=== PATIENT | female | born 1935 | race Caucasian/White ===

== ENCOUNTER → 2017-05-10 10:00 | Outpatient (CLI) | payer MEDICARE, OTHER | END | disposition home or self-care (01) | LOC: D.CT 10:00 | DX: Z85.3 Personal history of malignant neoplasm of breast (principal) ==

== ENCOUNTER → 2017-08-01 16:12 | Outpatient (CLI) | payer MEDICARE, OTHER ==
[2017-08-01 17:12] LABS: INR 1.01 (0.85-1.17); PROTIME 13.1 SECONDS (11.6-15.0)
[2017-08-01 17:15] LABS: % SATURATION 15 % (15-55); ALBUMIN 3.3 g/dL (3.4-5.0); BILIRUBIN - DIRECT 0.19 mg/dL (0.00-0.30); BILIRUBIN - INDIRECT 0.73 mg/dL (0.00-1.00); BILIRUBIN - TOTAL 0.92 mg/dL (0.2-1.3); IRON 61 ug/dl (35-150); PROTEIN - SERUM 6.7 g/dL (6.4-8.2); TOTAL IRON BIND CAPACITY 390 ug/dl (260-445); UNSAT IRON BIND CAPACITY 329 ug/dl (150-375)
[2017-08-03 07:21] LABS: ALPHA FETOPROTEIN -(TUMOR MRK) 2.1 ng/mL (0.0-8.3)
[2017-08-03 15:11] LABS: HEPATITIS C ANTIBODY 0.6 (0.0-0.9)
[2017-08-04 11:08] LABS: MITOCHONDRIAL ANTIBODY 4.8 Units (0.0-20.0); SMOOTH MUSCLE ABS (ACTIN) 11 Units (0-19)
[2017-08-05 13:13] LABS: ANA REFLEX - DIRECT Negative (Negative)
== END | disposition home or self-care (01) ==
LOC: D.LABREF 16:12
PROVIDERS: Internal Medicine Gastroenterology
DX: I85.00 Esophageal varices without bleeding (principal); K74.69 Other cirrhosis of liver; R93.8 Abnormal findings on diagnostic imaging of other specified body structures

== ENCOUNTER → 2018-03-24 09:11 | Outpatient (CLI) | payer MEDICARE, OTHER ==
[2018-03-24 09:43] LABS: BASOPHILS 0.4 % (0-2); EOSINOPHILS 2.1 % (0-7); HEMATOCRIT 36.5 % (36.0-48.0); HEMOGLOBIN 12.2 g/dL (12-16); IMMATURE GRANULOCYTES 0.2 % (0-5); MCH 30.8 pg (26.0-34.0); MCHC 33.4 g/dL (31.0-37.0); MCV 92.2 fL (80.0-100.0); MEAN PLATELET VOLUME 10.7 fL (7.4-10.4); MONOCYTES 7.6 % (2-11); NEUTROPHILS 70.7 % (40-80); PLATELET COUNT 81 10x3/uL (130-400); RBC 3.96 10x6/uL (4.00-5.40); RDW 15.6 % (11.5-14.5); WBC 5.3 10x3/uL (4.8-10.8)
[2018-03-24 10:04] LABS: ALBUMIN 3.4 g/dL (3.4-5.0); BILIRUBIN - DIRECT 0.41 mg/dL (0.00-0.30); BILIRUBIN - INDIRECT 0.99 mg/dL (0.00-1.00); BILIRUBIN - TOTAL 1.4 mg/dL (0.2-1.3)
[2018-03-24 10:11] LABS: PLATELET ESTIMATE DECREASED
== END | disposition home or self-care (01) ==
LOC: D.LAB 09:11 → D.US 10:00
PROVIDERS: Internal Medicine Gastroenterology
DX: K74.60 Unspecified cirrhosis of liver (principal)

== ENCOUNTER → 2019-09-15 20:48 | Outpatient (CLI) | payer MEDICARE, OTHER ==
[2019-09-15 21:37] LABS: ALBUMIN 3.3 g/dL (3.4-5.0); BILIRUBIN - DIRECT 0.25 mg/dL (0.00-0.30); BILIRUBIN - INDIRECT 0.96 mg/dL (0.00-1.00); BILIRUBIN - TOTAL 1.21 mg/dL (0.2-1.3); PROTEIN - SERUM 6.5 g/dL (6.4-8.2)
== END | disposition home or self-care (01) ==
LOC: D.LABREF 20:48
PROVIDERS: ATTEND Internal Medicine Gastroenterology
DX: K74.69 Other cirrhosis of liver (principal); I85.00 Esophageal varices without bleeding

== ENCOUNTER → 2019-09-18 09:40 | Outpatient (CLI) | payer MEDICARE, OTHER | END | disposition home or self-care (01) | LOC: D.US 09:40 | PROVIDERS: ATTEND Internal Medicine Gastroenterology | DX: K74.69 Other cirrhosis of liver (principal); I85.00 Esophageal varices without bleeding ==

== ENCOUNTER 2021-01-01 06:31 | Emergency (ER) | payer MEDICARE, OTHER ==
[~2021-01-01] VITALS: Ht 162.6 cm; Wt 90.0 kg
[2021-01-01 06:33] VITALS: BP 198/72; Ht 162.6 cm; Wt 90.0 kg
[2021-01-01] MEDS ORDERED: LEVOXYL50 MCG PO (06:40)
[2021-01-01] MEDS ORDERED: JARDIANCE10 MG PO (06:41)
[2021-01-01] MEDS ORDERED: GLIMEPIRIDE4 MG PO (06:41)
[2021-01-01] MEDS ORDERED: LASIX40 MG PO (06:41)
[2021-01-01] MEDS ORDERED: K-TAB10 MEQ PO (06:41)
[2021-01-01] MEDS ORDERED: ZYLOPRIM300 MG PO (06:43)
[2021-01-01] MEDS ORDERED: GLUCOPHAGE500 MG PO (06:43)
[2021-01-01] MEDS ORDERED: COZAAR50 MG PO (06:43)
[2021-01-01] MEDS ORDERED: GABAPENTIN100 MG PO (06:43)
[2021-01-01] MEDS ORDERED: ROPINIROLE HCL1 MG PO (06:44)
[2021-01-01] MEDS ORDERED: DONEPEZIL HCL10 MG PO (06:45)
[2021-01-01] MEDS ORDERED: ULTRAM50 MG PO (06:46)
[2021-01-01] MEDS ORDERED: VITAMIN E200 UNI1 PO (06:46)
[2021-01-01] MEDS ORDERED: METHOCARBAMOL500 MG PO ×2 (06:46→09:48)
[2021-01-01 07:37] LABS: CALC OSMOLALITY 283 mosm/kg (275-300); CARBON DIOXIDE 24.6 mmol/L (21.0-32.0); CHLORIDE - SERUM 106 mmol/L (98-107); CREATININE - SERUM 1.3 mg/dL (0.6-1.3); GLUCOSE 89 mg/dL (74-106); POTASSIUM - SERUM 3.2 mmol/L (3.5-5.1); SODIUM 141 mmol/L (136-145); UREA NITROGEN 25 mg/dL (7-18); eGFR NON AFRICAN AMERICAN 41 mL/min (90-120)
[2021-01-01 07:44] LABS: BASOPHILS 0.3 % (0-2); EOSINOPHILS 2.2 % (0-7); HEMATOCRIT 36.1 % (36.0-48.0); HEMOGLOBIN 11.7 g/dL (12-16); IMMATURE GRANULOCYTES 0.3 % (0-5); LYMPHOCYTES 10.8 % (15-50); MCH 31.2 pg (26.0-34.0); MCHC 32.4 g/dL (31.0-37.0); MCV 96.3 fL (80.0-100.0); MEAN PLATELET VOLUME 9.8 fL (7.4-10.4); MONOCYTES 8.6 % (2-11); NEUTROPHIL ABS# 5.06 10x3/uL (1.56-6.13); NEUTROPHILS 77.8 % (40-80); PLATELET COUNT 67 10x3/uL (130-400); RBC 3.75 10x6/uL (4.00-5.40); RDW 15.8 % (11.5-14.5); WBC 6.5 10x3/uL (4.8-10.8)
[2021-01-01 07:47] LABS: ALBUMIN 3.3 g/dL (3.4-5.0); ALKALINE PHOSPHATASE 98 U/L (30-120); ALT (SGPT) 32 U/L (10-68); AMYLASE - SERUM 112 U/L (25-115); BILIRUBIN - TOTAL 1.01 mg/dL (0.2-1.3); LIPASE 427 U/L (73-393); PROTEIN - SERUM 6.1 g/dL (6.4-8.2)
[2021-01-01 07:48] LABS: TROPONIN-I < 0.017 ng/mL (0.000-0.060)
[2021-01-01 08:03] LABS: BILIRUBIN NEGATIVE (NEGATIVE); KETONE NEGATIVE (NEGATIVE); NITRITE NEGATIVE (NEGATIVE); UROBILINOGEN NORMAL mg/dL (< 2)
[2021-01-01 08:20] LABS: PLATELET ESTIMATE DECREASED
[2021-01-01] MEDS ORDERED: NAPROSYN500 MG PO (09:48)
== END 2021-01-01 10:30 | disposition home or self-care (01) ==
LOC: D.ER 06:31
PROVIDERS: Family Medicine
DX: M48.56XA Collapsed vertebra, not elsewhere classified, lumbar region, initial encounter for fracture (principal); M54.42 Lumbago with sciatica, left side; M79.10 Myalgia, unspecified site; E11.9 Type 2 diabetes mellitus without complications; I10 Essential (primary) hypertension; Z79.84 Long term (current) use of oral hypoglycemic drugs

== ENCOUNTER 2021-01-24 12:37 | Inpatient (IN) | payer MEDICARE, OTHER ==
[2021-01-24] VITALS (8 sets, daily range): BP systolic 144–162; BP diastolic 32–63
[~2021-01-24] VITALS: Ht 162.6 cm; Wt 79.1 kg
[~2021-01-24 12:37] MED LIST: COZAAR50 MG PO; DONEPEZIL HCL10 MG PO; GABAPENTIN100 MG PO; GLIMEPIRIDE4 MG PO; GLUCOPHAGE500 MG PO; JARDIANCE10 MG PO; K-TAB10 MEQ PO; LASIX40 MG PO; LEVOXYL50 MCG PO; METHOCARBAMOL500 MG PO; NAPROSYN500 MG PO; ROPINIROLE HCL1 MG PO; ULTRAM50 MG PO; VITAMIN E200 UNI1 PO; ZYLOPRIM300 MG PO
[2021-01-24] MEDS ORDERED: CELEBREX200 MG PO (12:44)
[2021-01-24] MEDS ORDERED: LYRICA75 MG PO (12:47)
[2021-01-24] MEDS ORDERED: GLUCOPHAGE500 MG PO (12:48)
[2021-01-24] MEDS ORDERED: ALDACTONE50 MG PO (12:49)
[2021-01-24] MEDS ORDERED: HYDROCODON-ACE1 EA10 PO (12:51)
[2021-01-24 18:15] LABS: BASOPHILS 0.2 % (0-2); EOSINOPHILS 2.4 % (0-7); HEMATOCRIT 37.1 % (36.0-48.0); HEMOGLOBIN 11.5 g/dL (12-16); IMMATURE GRANULOCYTES 0.4 % (0-5); LYMPHOCYTE ABS# 1.53 10x3/uL (1.18-3.74); LYMPHOCYTES 9.5 % (15-50); MCH 30.7 pg (26.0-34.0); MCV 98.9 fL (80.0-100.0); MEAN PLATELET VOLUME 11.6 fL (7.4-10.4); NEUTROPHIL ABS# 13.25 10x3/uL (1.56-6.13); NEUTROPHILS 82.5 % (40-80); RBC 3.75 10x6/uL (4.00-5.40); RDW 15.4 % (11.5-14.5); WBC 16.1 10x3/uL (4.8-10.8)
[2021-01-24 18:30] LABS: APTT 32.7 SECONDS (22.8-39.4); INR 1.19 (0.85-1.17)
[2021-01-24 18:39] LABS: ALBUMIN 3.1 g/dL (3.4-5.0); ANION GAP 16.1 mmol/L (8-16); BILIRUBIN - TOTAL 0.79 mg/dL (0.2-1.3); CALCIUM 9.1 mg/dL (8.5-10.1); CARBON DIOXIDE 24.7 mmol/L (21.0-32.0); CREATININE - SERUM 2.3 mg/dL (0.6-1.3); POTASSIUM - SERUM 4.8 mmol/L (3.5-5.1)
[2021-01-24 18:41] LABS: PLATELET COUNT 117 10x3/uL (130-400)
--- NOTE | 2021-01-24 21:00 | NUR ---
ADMITTED OT ROOM FROM ER ALERT AND ORIENTIATED, IMOBLIZER IN PLACE TO RIGHT LEG,MAX X 2 TO TRANSFER FROM STRETCHER TO BED, REPORTS RECENT BACK SURGERY, SMALL HEALED INCISION WITH STERISTRIP NOTED TO LOWER BACK, UNABLE TO USE BEDPAN DUE TO PAIN, LAWSON CATH PLACED ORDERED, SEE ASSESSMENT, CALL LIGHT IN REACH
--- NOTE | 2021-01-24 22:45 | NUR ---
BLOOD SUGAR RECHECKED 91,SNACK OFFERED REFUSED, INSRUTED WILL RECHECK ABOUT 1AM OR TO CALL IF NEEDED PRIOR TO CALL LIGHT IN REACH FALL PRECAUTIONS IN PLACE
[2021-01-25 00:28] VITALS: BP 144/63; Ht 162.6 cm; Wt 79.1 kg
--- NOTE | 2021-01-25 01:20 | NUR ---
BLOOD SUGAR 36, ABLE TO AROUSE ASK FOR SOMETHING TO DRINK, D50 25ML GIVEN ORDERED, REQUESTING ORANGE JUICE AND AGREED TO EAT PEANUTBUTTER AND JENNIFER CRACKERS
[2021-01-25 01:30] VITALS: BP 170/70
--- NOTE | 2021-01-25 01:40 | NUR ---
BLOOD SUGAR RECHECKED 85, WILL MONITOR
[2021-01-25 02:28] LABS: BILIRUBIN NEGATIVE (NEGATIVE); KETONE NEGATIVE (NEGATIVE); NITRITE NEGATIVE (NEGATIVE); UROBILINOGEN NORMAL mg/dL (< 2)
[2021-01-25 02:34] LABS: SQUAMOUS EPITHELIAL 0-5 HPF (0-4); WHITE CELLS - URINE 0-5 HPF (0-4)
[2021-01-25 02:35] LABS: BACTERIA FEW HPF (NONE SEEN)
[2021-01-25 04:00] VITALS: BP 151/63
[2021-01-25 07:48] LABS: BASOPHILS 0.2 % (0-2); EOSINOPHILS 3.3 % (0-7); HEMATOCRIT 31.4 % (36.0-48.0); HEMOGLOBIN 9.7 g/dL (12-16); IMMATURE GRANULOCYTES 0.1 % (0-5); LYMPHOCYTE ABS# 0.95 10x3/uL (1.18-3.74); LYMPHOCYTES 10.7 % (15-50); MCH 30.4 pg (26.0-34.0); MCHC 30.9 g/dL (31.0-37.0); MCV 98.4 fL (80.0-100.0); NEUTROPHIL ABS# 6.96 10x3/uL (1.56-6.13); NEUTROPHILS 78.7 % (40-80); RBC 3.19 10x6/uL (4.00-5.40); RDW 15.4 % (11.5-14.5)
[2021-01-25 07:56] LABS: PLATELET COUNT 92 10x3/uL (130-400); WBC 8.9 10x3/uL (4.8-10.8)
[2021-01-25 08:10] LABS: ALBUMIN 2.5 g/dL (3.4-5.0); ANION GAP 12.8 mmol/L (8-16); BILIRUBIN - TOTAL 0.65 mg/dL (0.2-1.3); CALCIUM 8.5 mg/dL (8.5-10.1); CARBON DIOXIDE 25.9 mmol/L (21.0-32.0); MAGNESIUM - SERUM 1.8 mg/dL (1.8-2.4); PHOSPHOROUS 3.3 mg/dL (2.5-4.9); POTASSIUM - SERUM 5.7 mmol/L (3.5-5.1); PROTEIN - SERUM 5.1 g/dL (6.4-8.2)
[2021-01-25 08:23] VITALS: BP 141/50
--- NOTE | 2021-01-25 10:55 | NUR ---
0830, CHECKED PTS CBG, DISCUSSED NEED TO EAT ADEQUATE BREAKFAST. PT STATES "I ATE ALL NIGHT BECAUSE OF MY SUGAR, I AM NOT HUNGRY NOW." PT ATE APPROXIMATELY HALF OF BREAKFAST. RESTING QUIETLY. DENIES ANY OTHER NEEDS.
--- NOTE | 2021-01-25 10:58 | NUR ---
PT REPORTS PHONE IN ROOM RANG AND SHE COULD NOT REACH IT. PHONE PLACED ON PATIENTS BED PER PT REQUEST. DENIES ANY OTHER NEEDS AT THIS TIME.
--- NOTE | 2021-01-25 11:27 | NUR ---
PT CBG 110. PT ASKED HOW TO USE PHONE. PT DENIES ANY OTHER NEEDS.
--- NOTE | 2021-01-25 11:43 | NUR ---
REHAB PRESCREEN RECEIVED. PT HAS NOT BEEN SEEN BY THERAPY AT THIS TIME. I HAVE SPOKE WITH THERAPY DEPARTMENT AND ASKED THEM TO TRY TO MOVE HER TO THE TOP OF THE LIST. I HAVE EXPLAINED THIS TO MATY MAN CM, AND WILL LOOK AT HER LATER TODAY AFTER SEEN BY THERAPY.
--- NOTE | 2021-01-25 12:17 | NUR ---
pt up to chair by PT and eating lunch.
[2021-01-25 12:29] LABS: INR 1.29 (0.85-1.17); PROTIME 14.9 SECONDS (11.6-15.0)
--- NOTE | 2021-01-25 13:16 | MORECARE ---
CASE MANAGEMENT DISCHARGE SUMMARY PATIENT: GERI ARZOLA UNIT: [id number] ADM DATE: 01/25/21 AGE: 85 : 36 SEX: F ROOM/BED: [facility] AUTHOR: KELLEN,DOC PHYSICIAN: REFERRING PHYSICIAN: OSEAS SANCHEZ MD DATE OF SERVICE: 01/25/21 Case Management Discharge Planning Summary DCP REVIEW SUMMARY ANTICIPATED D/C DATE: EXPECTED LOS : CASE STATUS: DCP Initiated INITIAL REVIEW: 01/25/2021 INITIAL REVIEWER: Litzy Yang FINAL DISCHARGE DISPOSITION: : FINAL REVIEWER: FINAL REVIEW DATE: DCP Focus Questions & Answers QUESTION: ANSWER : PATIENT: GERI ARZOLA ENCOUNTER: [id number] MEDICAL RECORD#: [id number] ADMISSION DATE: 01/25/2021 DISCHARGE DATE: ATTENDING MD: OSEAS DUQUE : AGE: 85 MARITAL STATUS: M DC PLAN ID: [id number] FACILITY: [facility] PRINTED ON: 01/25/21 13:16 CT All edits/amendments must be made on the electronic document DICTATION DATE: 01/25/21 131 TOUR COUNSELOR: DM 01/25/21 1315 RPT#: [id number] DC DATE: STATUS: ADM IN [facility] [address] [place] [address] END OF REPORT
--- NOTE | 2021-01-25 13:27 | MORECARE ---
CASE MANAGEMENT DISCHARGE SUMMARY PATIENT: GERI PUENTE UNIT: [id number] ADM DATE: 01/25/21 AGE: 85 : 36 SEX: F ROOM/BED: D.1207 AUTHOR: MARLA FOREMAN PHYSICIAN: REFERRING PHYSICIAN: OSEAS SANCHEZ MD DATE OF SERVICE: 01/25/21 Case Management Discharge Planning Summary DCP REVIEW SUMMARY ANTICIPATED D/C DATE: EXPECTED LOS : CASE STATUS: DCP Initiated INITIAL REVIEW: 01/25/2021 INITIAL REVIEWER: Litzy Yang FINAL DISCHARGE DISPOSITION: : FINAL REVIEWER: FINAL REVIEW DATE: DCP Focus Questions & Answers DCP Evaluation QUESTION: ANSWER Patient and/or caregiver agree upon recommended discharge plan? : Yes Patient's current cognitive status: : *Oriented to person, place, situation, time and present Patient's ability to cope with chronic illness : d. No chronic illness Patient gives permission to discuss discharge plans with: (name, relationship and number) : Xin Puente - spouse - [phone] Does the patient have the ability to pay for or attain post discharge needs / services? : Yes Functional screen assessment: : New onset in weakness or paralysis Family / Caregiver's ability to cope with chronic illness: : a. Adequate (ability to meet patient's medical needs, ensures patient attends medical appts.) Physical Status: : Partial care dependence Physical Status: : Mobility impaired Equipment needed for post hospitalization: : None Is there a likelihood that the patient will require additional services to return to the preadmission environment? : No Living Arrangements: : Assisted Living Partial Dependence, assistance required for: : Dressing Partial Dependence, assistance required for: : Bathing Partial Dependence, assistance required for: : Ambulation / Mobility Results of this evaluation have been discussed with: : Patient Patient with capacity for self-care or can be cared for in same environment as prior to hospitalization? : No Living arrangements comments: : [facility] Baseline cognitive status: : *Oriented to person, place, situation, time and present Medication Management: : Patient states the need for assistance with medication administration Pharmacy name(s): : [facility] [address] Does Patient have transportation to get home and to follow-up medical appointments when discharged from the hospital? : Yes Would patient like to participate in any Care Coordination programs (if applicable): : Not applicable Does the patient have electricity at home? : Yes Does the patient have running water in their house? : Yes Equipment in use: : Walker - Rolling Equipment in use: : Home Oxygen with Nasal Cannula Equipment in use: : Bedside Commode Equipment agency name and contact information: : [employer] is [employer] company for oxygen Mental health screen: : No mental health history Psychosocial status: : Adult with physical limitations Resources / Services in place: : Home health DCP Re-evaluation QUESTION: ANSWER Would patient like to participate in any Care Coordination programs (if applicable): : Not applicable PATIENT: GERI PUENTE ENCOUNTER: [id number] MEDICAL RECORD#: [id number] ADMISSION DATE: 01/25/2021 DISCHARGE DATE: ATTENDING MD: OSEAS DUQUE : AGE: 85 MARITAL STATUS: M DC PLAN ID: [id number] FACILITY: [facility] PRINTED ON: 01/25/21 13:27 CT All edits/amendments must be made on the electronic document DICTATION DATE: 01/25/211326 CRITICAL CARE UNIT NURSE: JEREMI 01/25/21 1327 RPT#: [id number] DC DATE: STATUS: ADM IN [facility] [address] [place] [address] END OF REPORT
--- NOTE | 2021-01-25 13:39 | MORECARE ---
CASE MANAGEMENT DISCHARGE SUMMARY PATIENT: GERI PUENTE UNIT: [id number] ADM DATE: 01/25/21 AGE: 85 : 36 SEX: F ROOM/BED: D.1207 AUTHOR: KELLEN,DOC PHYSICIAN: REFERRING PHYSICIAN: OSEAS SANCHEZ MD DATE OF SERVICE: 01/25/21 Case Management Discharge Planning Summary COMMENTS ENTERED DATE: 01/25/21 13:18 CT COMMENT TYPE: Discharge Planning REVIEWER: Litzy Yang CM met with patient to discuss discharge planning/needs. She states she lives at [facility] with her spouse. She states her child from [place] is here now and she is getting their home ready to sell and they are going to stay at [facility]. She states that She has assistance with bathing, dressing and they wheel her to the dining room for her meals. She also states they administer all of her medications to her. She states she also has a pull cord in every room and a medical alert button on her wrist. She ambulates with a rolling walker, but does have a wheelchair (borrowed from a friend) that she also uses. She wears oxygen at 2 liters NC at night. [employer] is her provider for oxygen. I informed her of the availability of home health and she states she has home health, but unsure what company she uses. I informed her of rehab and DME availability and she agrees to inpatient rehab. JOSUE for inpatient rehab signed at [facility]. Dr. Mayers is patient's PCP. CM will continue to follow and assist with discharge planning/needs. DCP REVIEW SUMMARY ANTICIPATED D/C DATE: EXPECTED LOS : CASE STATUS: DCP Initiated INITIAL REVIEW: 01/25/2021 INITIAL REVIEWER: Litzy Yang FINAL DISCHARGE DISPOSITION: : FINAL REVIEWER: FINAL REVIEW DATE: DCP Focus Questions & Answers DCP Evaluation QUESTION: ANSWER Patient and/or caregiver agree upon recommended discharge plan? : Yes Patient's current cognitive status: : *Oriented to person, place, situation, time and present Patient's ability to cope with chronic illness : d. No chronic illness Patient gives permission to discuss discharge plans with: (name, relationship and number) : Xin Puente - spouse - [phone] Does the patient have the ability to pay for or attain post discharge needs / services? : Yes Functional screen assessment: : New onset in weakness or paralysis Family / Caregiver's ability to cope with chronic illness: : a. Adequate (ability to meet patient's medical needs, ensures patient attends medical appts.) Physical Status: : Partial care dependence Physical Status: : Mobility impaired Equipment needed for post hospitalization: : None Is there a likelihood that the patient will require additional services to return to the preadmission environment? : No Living Arrangements: : Assisted Living Partial Dependence, assistance required for: : Dressing Partial Dependence, assistance required for: : Bathing Partial Dependence, assistance required for: : Ambulation / Mobility Results of this evaluation have been discussed with: : Patient Patient with capacity for self-care or can be cared for in same environment as prior to hospitalization? : No Living arrangements comments: : [facility] Baseline cognitive status: : *Oriented to person, place, situation, time and present Medication Management: : Patient states the need for assistance with medication administration Pharmacy name(s): : [facility] [address] Does Patient have transportation to get home and to follow-up medical appointments when discharged from the hospital? : Yes Would patient like to participate in any Care Coordination programs (if applicable): : Not applicable Does the patient have electricity at home? : Yes Does the patient have running water in their house? : Yes Equipment in use: : Walker - Rolling Equipment in use: : Home Oxygen with Nasal Cannula Equipment in use: : Bedside Commode Equipment agency name and contact information: : [employer] is [employer] company for oxygen Mental health screen: : No mental health history Psychosocial status: : Adult with physical limitations Resources / Services in place: : Home health DCP Re-evaluation QUESTION: ANSWER Would patient like to participate in any Care Coordination programs (if applicable): : Not applicable PATIENT: GERI PUENTE ENCOUNTER: [id number] MEDICAL RECORD#: [id number] ADMISSION DATE: 01/25/2021 DISCHARGE DATE: ATTENDING MD: OSEAS DUQUE : AGE: 85 MARITAL STATUS: M DC PLAN ID: [id number] FACILITY: [facility] PRINTED ON: 01/25/21 13:39 CT All edits/amendments must be made on the electronic document DICTATION DATE: 01/25/211338 [employer]ILDINGS [employer] GROUN[employer] DIRECTOR: JEREMI 01/25/211338 RPT#: [id number] DC DATE: STATUS: ADM IN [facility] [address] [place] [address] END OF REPORT
[2021-01-25 14:07] LABS: PLATELET ESTIMATE DECREASED
[2021-01-25 14:08] LABS: ANISOCYTOSIS OCC
[2021-01-25 15:23] VITALS: BP 151/50
--- NOTE | 2021-01-25 15:24 | NUR ---
HELPED PATIENT GO BACK TO BED WITH LOW MOD ASSIT USED WALKER AND GT BELT
--- NOTE | 2021-01-25 17:45 | NUR ---
FSBS 104. ATE MOST OF SUPPER TRAY. BLADDER SCAN SHOWED 851cc. UP TO BSC WITH MAX ASSIST OF ONE. VOIDED AND HAD LARGE COW CYNTHIA STOOL. SKIN CARE PER STAFF. REPOSITIONED IN BED FOR COMFORT MAX ASSIST OF 2. REQUESTED AND GIVEN ONE HYDROCODONE PO FOR C/O BACK AND LEFT LEG PAIN LEVEL 7. WILL MONITOR.
--- NOTE | 2021-01-25 20:00 | NUR ---
RESTING IN BED AROUSED EASILY, IMOBLIZER IN PLACE TO RIGHT LEG, C/O PAIN WITH MOVEMENT, PERWICK IN PLACE FOR INCONTIENCE, SEE SHIFT ASSESSMENT, CALL LIGHT IN REACH, FALL PRECAUTIONS IN PLACE
[2021-01-25 21:14] VITALS: BP 136/53
[2021-01-26 04:30] VITALS: BP 150/56
[2021-01-26 07:04] LABS: BASOPHILS 0.4 % (0-2); HEMATOCRIT 28.4 % (36.0-48.0); HEMOGLOBIN 8.7 g/dL (12-16); IMMATURE GRANULOCYTES 0.4 % (0-5); LYMPHOCYTE ABS# 0.76 10x3/uL (1.18-3.74); LYMPHOCYTES 16.6 % (15-50); MCH 30.7 pg (26.0-34.0); MCHC 30.6 g/dL (31.0-37.0); MEAN PLATELET VOLUME 13.1 fL (7.4-10.4); MONOCYTES 7.8 % (2-11); NEUTROPHILS 69.8 % (40-80); RBC 2.83 10x6/uL (4.00-5.40); RDW 15.4 % (11.5-14.5)
[2021-01-26 07:18] VITALS: BP 157/55
--- NOTE | 2021-01-26 07:23 | NUR ---
AWAKE AND ALERT. ORIENTED X3. NO C/O AT THIS TIME. LUNGS ARE CLEAR BILATERALLY, NO COUGH NOTED. SKIN IS INTACT WITHOUT REDNESS. IV TO LEFT FOREARM IS PATENT WITHOUT REDNESS AT INSERTION SITE. DENIES NEEDS.
[2021-01-26 07:39] LABS: ANION GAP 11.9 mmol/L (8-16); CALCIUM 8.1 mg/dL (8.5-10.1); CARBON DIOXIDE 25.1 mmol/L (21.0-32.0); CREATININE - SERUM 1.9 mg/dL (0.6-1.3); MAGNESIUM - SERUM 1.7 mg/dL (1.8-2.4); PHOSPHOROUS 3.2 mg/dL (2.5-4.9)
[2021-01-26 07:47] LABS: MCV 100.4 fL (80.0-100.0); PLATELET COUNT 63 10x3/uL (130-400); WBC 4.6 10x3/uL (4.8-10.8)
--- NOTE | 2021-01-26 08:30 | NUR ---
INCONTINENT OF LARGE AMOUNT OF URINE. SKIN CARE AND LINENS CHANGED PER STAFF. REPOSITIONED IN BED FOR COMFORT. ATE MOST OF BREAKFAST. TOOK AM MEDS WITHOUT DIFFICULTY. DENIES NEEDS.
--- NOTE | 2021-01-26 09:42 | NUR ---
PT IS A CANDIDATE FOR ACUTE INPATIENT REHAB. I WILL BEGIN HER ELECTRONIC SCREEN. SHE WILL BE ACCEPTED TO REHAB WHEN APPROVALS ARE IN PLACE AND HER PHYSICIANS FEEL SHE IS APPROPRIATE FOR DISCHARGE. WE CAN TAKE HER TODAY. THANK YOU FOR THIS REFERRAL! ANABEL ASHBY RN CLINICAL LIAISON, INPATIENT REHAB.
--- NOTE | 2021-01-26 09:50 | NUR ---
UP TO BSC WITH MAX ASSIST ON PT AND RW. HAD LARGE VOLUMN OF URINE WITH MODERATE AMOUNT O LOOSE COWPATTY STOOL. SKIN CARE PER STAFF. REQUESTED AND GIVEN ONE HYDROCODONE PO FOR C/O RIGHT LEG AND LEFT ANKLE PAIN LEVEL 7. WILL MONITOR.
--- NOTE | 2021-01-26 10:45 | NUR ---
BACK TO BED PER PT. SPOKE WITH DR. WAITE'S OFFICE RE ABILITY TO SIT UP IN AR. PATIENT IS THINKING SHE COULD ONLY SIT UP FOR 20 MINUTES. EXPLAINED THAT WAS A STRAIGHT BACK CHAIR AND ONLY FOR 2 WEEKS POST OP. WILL MONITOR.
--- NOTE | 2021-01-26 11:57 | NUR ---
FSBS 290. GIVEN 6 UNITS HUMALOG SUBQ PER SS. SITTING UP IN BED EATING LUNCH. VISITOR AT BEDSIDE.
[2021-01-26 12:00] VITALS: BP 140/51
[2021-01-26] MEDS ORDERED: ROCEPHIN 1 GM/D51 G1 IV (13:46)
[2021-01-26] MEDS ORDERED: ALBUTEROL2.5 MG/3 M UPD (13:46)
[2021-01-26] MEDS ORDERED: ACETAMINOPHEN500 M1 PO (13:46)
[2021-01-26] MEDS ORDERED: LYRICA75 MG PO (13:47)
[2021-01-26] MEDS ORDERED: HUMALOG 30100 UNITS/ SC (13:47)
[2021-01-26] MEDS ORDERED: SODIUM CL 0.91000 ML IV (13:51)
--- NOTE | 2021-01-26 14:37 | NUR ---
UP TO BS WITH 2 PERSON MIN ASSIST. VOIDED 300cc URINE AND HAD LARGE COWPATTY VERY DARK STOOL . SKIN CARE PER STAFF. REPOSITIONED IN BED FOR COMFORT. VISITOR AT BEDSIDE.
--- NOTE | 2021-01-26 14:49 | NUR ---
DISCHARGE ORDERS RECEIVED. DISCHARGE INSTRUCTIONS GIVEN BOTH VERBALLY AND WRITTEN. ALL QUESTIONS ANSWERED. PATIENT VERBALIZED UNDERSTANDING OF SAME. WAITING ON REHAB FOR ROOM ASSINGMENT.
--- NOTE | 2021-01-26 16:03 | NUR ---
DISCHARGED TO REHAB VIA . DAUGHTER AT BEDSIDE. ALL BELONGINGS WITH PATIENT.
--- NOTE | 2021-01-26 16:12 | MORECARE ---
CASE MANAGEMENT DISCHARGE SUMMARY PATIENT: GERI PUENTE UNIT: [id number] ADM DATE: 01/25/21 AGE: 85 : 36 SEX: F ROOM/BED: D.1207 AUTHOR: KELLEN,DOC PHYSICIAN: REFERRING PHYSICIAN: OSEAS SANCHEZ MD DATE OF SERVICE: 01/26/21 Case Management Discharge Planning Summary COMMENTS ENTERED DATE: 01/25/21 13:18 CT COMMENT TYPE: Discharge Planning REVIEWER: Litzy Yang CM met with patient to discuss discharge planning/needs. She states she lives at [facility] with her spouse. She states her child from [place] is here now and she is getting their home ready to sell and they are going to stay at [facility]. She states that She has assistance with bathing, dressing and they wheel her to the dining room for her meals. She also states they administer all of her medications to her. She states she also has a pull cord in every room and a medical alert button on her wrist. She ambulates with a rolling walker, but does have a wheelchair (borrowed from a friend) that she also uses. She wears oxygen at 2 liters NC at night. [employer] is her provider for oxygen. I informed her of the availability of home health and she states she has home health, but unsure what company she uses. I informed her of rehab and DME availability and she agrees to inpatient rehab. JOSUE for inpatient rehab signed at [facility]. Dr. Mayers is patient's PCP. CM will continue to follow and assist with discharge planning/needs. DCP REVIEW SUMMARY ANTICIPATED D/C DATE: EXPECTED LOS : CASE STATUS: DCP Initiated INITIAL REVIEW: 01/25/2021 INITIAL REVIEWER: Litzy Yang FINAL DISCHARGE DISPOSITION: : FINAL REVIEWER: FINAL REVIEW DATE: DCP Focus Questions & Answers DCP Evaluation QUESTION: ANSWER Patient and/or caregiver agree upon recommended discharge plan? : Yes Patient's current cognitive status: : *Oriented to person, place, situation, time and present Patient's ability to cope with chronic illness : d. No chronic illness Patient gives permission to discuss discharge plans with: (name, relationship and number) : Xin Puente - spouse - [phone] Does the patient have the ability to pay for or attain post discharge needs / services? : Yes Functional screen assessment: : New onset in weakness or paralysis Family / Caregiver's ability to cope with chronic illness: : a. Adequate (ability to meet patient's medical needs, ensures patient attends medical appts.) Physical Status: : Partial care dependence Physical Status: : Mobility impaired Equipment needed for post hospitalization: : None Is there a likelihood that the patient will require additional services to return to the preadmission environment? : No Living Arrangements: : Assisted Living Partial Dependence, assistance required for: : Dressing Partial Dependence, assistance required for: : Bathing Partial Dependence, assistance required for: : Ambulation / Mobility Results of this evaluation have been discussed with: : Patient Patient with capacity for self-care or can be cared for in same environment as prior to hospitalization? : No Living arrangements comments: : [facility] Baseline cognitive status: : *Oriented to person, place, situation, time and present Medication Management: : Patient states the need for assistance with medication administration Pharmacy name(s): : [facility] [address] Does Patient have transportation to get home and to follow-up medical appointments when discharged from the hospital? : Yes Would patient like to participate in any Care Coordination programs (if applicable): : Not applicable Does the patient have electricity at home? : Yes Does the patient have running water in their house? : Yes Equipment in use: : Walker - Rolling Equipment in use: : Home Oxygen with Nasal Cannula Equipment in use: : Bedside Commode Equipment agency name and contact information: : [employer] is [employer] company for oxygen Mental health screen: : No mental health history Psychosocial status: : Adult with physical limitations Resources / Services in place: : Home health DCP Re-evaluation QUESTION: ANSWER Would patient like to participate in any Care Coordination programs (if applicable): : Not applicable PATIENT: GERI PUENTE ENCOUNTER: [id number] MEDICAL RECORD#: [id number] ADMISSION DATE: 01/25/2021 DISCHARGE DATE: 01/26/2021 ATTENDING MD: OSEAS DUQUE : AGE: 85 MARITAL STATUS: M DC PLAN ID: [id number] FACILITY: [facility] PRINTED ON: 01/26/21 16:12 CT All edits/amendments must be made on the electronic document DICTATION DATE: 01/26/211611 SPACE SCHEDULER: JEREMI 01/26/211611 RPT#: [id number] DC DATE:01/26/21 STATUS: DIS IN [facility] [address] [place] [address] END OF REPORT
== END 2021-01-26 16:07 | DRG 563 ==
LOC: D.ER 12:37 → D.M3 19:08 → OBSVTIME 19:09 → D.M3 01-25 12:44
PROVIDERS: Emergency Medicine; ADMIT Family Medicine; ATTEND Family Medicine
PROC: 2W3QX1Z Immobilization of Right Lower Leg using Splint (ICD-10-PCS; principal; 2021-01-24)
DX: S82.141A Displaced bicondylar fracture of right tibia, initial encounter for closed fracture (principal); N17.9 Acute kidney failure, unspecified; W19.XXXA Unspecified fall, initial encounter; E11.649 Type 2 diabetes mellitus with hypoglycemia without coma; E11.40 Type 2 diabetes mellitus with diabetic neuropathy, unspecified; G89.29 Other chronic pain; M54.9 Dorsalgia, unspecified; K21.9 Gastro-esophageal reflux disease without esophagitis; M19.90 Unspecified osteoarthritis, unspecified site; E87.5 Hyperkalemia; I10 Essential (primary) hypertension; D53.9 Nutritional anemia, unspecified

== ENCOUNTER 2021-01-26 16:27 | Inpatient (IN) | payer MEDICARE, OTHER ==
[~2021-01-26] VITALS: Ht 162.6 cm; Wt 72.1 kg
[~2021-01-26 16:27] MED LIST changes: +ACETAMINOPHEN500 M1 PO; +ALBUTEROL2.5 MG/3 M UPD; +ALDACTONE50 MG PO; +CELEBREX200 MG PO; +HUMALOG 30100 UNITS/ SC; +HYDROCODON-ACE1 EA10 PO; +LYRICA75 MG PO; +ROCEPHIN 1 GM/D51 G1 IV; +SODIUM CL 0.91000 ML IV
[2021-01-26 16:38] VITALS: BP 146/54; BMI 27.3
--- NOTE | 2021-01-26 18:42 | NUR ---
PT RESTING IN BED WITH EYES OPEN CALL LIGHT IN REACH NO PROBLEMS WILL MONITER
--- NOTE | 2021-01-26 18:58 | NUR ---
BEDSIDE REPORT COMPLETE. RECEIVED PT LYING IN BED AWAKE. ALERT AND ORIENTED X4. DENIES ANY NEEDS OR PAIN. NO DISTRESS NOTED. RIGHT LE IMMOBILIZER IN PLACE. LEFT FOREARM IV PATENT. NO S/S OF INFECTION. DRESSING INTACT. CALL LIGHT AND WATER WITHIN REACH. JA ALARM ON. CPOC
[2021-01-26 19:56] VITALS: BP 140/62
--- NOTE | 2021-01-27 06:41 | NUR ---
PT PARTICIPATING IN PHYSICAL THERAPY WITH ISAIAH IN THERAPY GYM. NO DISTRESS NOTED.
[2021-01-27 07:06] LABS: ANION GAP 12.4 mmol/L (8-16); CALCIUM 9.1 mg/dL (8.5-10.1); CARBON DIOXIDE 24.4 mmol/L (21.0-32.0); CREATININE - SERUM 1.8 mg/dL (0.6-1.3); POTASSIUM - SERUM 4.8 mmol/L (3.5-5.1)
[2021-01-27 07:13] LABS: BASOPHILS 0.2 % (0-2); EOSINOPHILS 4.5 % (0-7); HEMATOCRIT 29.3 % (36.0-48.0); HEMOGLOBIN 8.9 g/dL (12-16); IMMATURE GRANULOCYTES 0.2 % (0-5); LYMPHOCYTE ABS# 0.74 10x3/uL (1.18-3.74); LYMPHOCYTES 18.4 % (15-50); MCH 30.4 pg (26.0-34.0); MCHC 30.4 g/dL (31.0-37.0); MEAN PLATELET VOLUME 12.4 fL (7.4-10.4); MONOCYTES 7.4 % (2-11); NEUTROPHIL ABS# 2.79 10x3/uL (1.56-6.13); NEUTROPHILS 69.3 % (40-80); PLATELET COUNT 60 10x3/uL (130-400); RBC 2.93 10x6/uL (4.00-5.40); RDW 15.4 % (11.5-14.5)
[2021-01-27 08:00] VITALS: BP 153/59
--- NOTE | 2021-01-27 10:49 | NUR ---
PATIENT ADMITTS TO REHAB FROM ACUTE FLOOR. HER PCP IS DR. RAMIREZ. AT DISCHARGE SHE PLANS ON RETURNING TO HER HOME. WILL CONTINUE TO FOLLOW WITH PATIENT.
[2021-01-27 12:35] VITALS: BMI 27.3
--- NOTE | 2021-01-27 19:32 | NUR ---
RESTING IN BED WITH EYES CLOSED AND RESPIRATIONS UNLABORED. LEFT UNDISTURBED FOR NOW. NO DISTRESS NOTED. CALL LIGHT IN REACH.
--- NOTE | 2021-01-28 05:15 | NUR ---
QUIET HOURS. NO ACUTE CHANGES IN CONDITION THIS SHIFT. RESTING IN BED WITH NO DISTRESS NOTED. LEFT LEG IMMOBILZER IN PLACE. CALL LIGHT IN REACH.
--- NOTE | 2021-01-28 08:00 | NUR ---
SHIFT ASSMT COMPLETED.CL IN REACH.BREAKFAST GIVEN.
[2021-01-28 09:32] VITALS: BP 154/55
--- NOTE | 2021-01-28 12:00 | NUR ---
RETURNED TO ROOM FOR LUNCH.[facility]ERAP[facility].
--- NOTE | 2021-01-28 16:00 | NUR ---
VISITING.RESTING QUIETLY.DENIES NEEDS.
[2021-01-28 19:12] VITALS: BP 109/70
--- NOTE | 2021-01-28 19:22 | NUR ---
AWAKE AND ALERT. RESTING IN BED WITH RESPIRATIONS UNLABORED. LEFT LEG IMMOBILIZER IN PLACE. NO DISTRESS NOTED. CALL LIGHT IN REACH.
--- NOTE | 2021-01-29 05:22 | NUR ---
QUIET HOURS. NO ACUTE CHANGES IN CONDITION THIS SHIFT. RESTING IN BED WITH NO DISTRESS NOTED.
--- NOTE | 2021-01-29 05:22 | NUR ---
QUIET HOURS. NO ACUTE CHANGES IN CONDITION THIS SHIFT. RESTING IN BED WITH NO DISTRESS NOTED.
--- NOTE | 2021-01-29 06:06 | NUR ---
BLOOD SUGAR 64. AWAKE AND ALERT. SKIN WARM AND DRY. ORNAGE JUICE AND GRAHM CRACKERS GIVEN.
[2021-01-29 08:00] VITALS: BP 128/43
--- NOTE | 2021-01-29 08:00 | NUR ---
SHIFT ASSMT COMPLETED.RIGHT KNEE IMMOBILIZER ON.CL IN REACH,EATING BREAKFAST.
--- NOTE | 2021-01-29 12:00 | NUR ---
UP OOB.CL IN REACH.FRIEND VISITING.
[2021-01-29 19:00] VITALS: BP 140/52
--- NOTE | 2021-01-29 19:38 | NUR ---
AWAKE AND ALERT. RESTING IN BED WITH RESPIRATIONS UNLABORED. IMMOBILIZER IN PLACE TO LOWER RIGHT LEG. NO NEEDS VOICED. NO DISTRESS NOTED.
--- NOTE | 2021-01-30 05:21 | NUR ---
UP TO SHOWER. LEFT LEG SWOLLEN AND PATIENT CRYING SAYING "IT HURTS WORSE THAN THE OTHER ONE" MEANING HER RIGHT PATELLA FRACTURE. MEDICATED FOR PAIN. SEE MAR. ASSISTED BACK TO BED AND RIGHT IMMOBILIZER REAPPLIED. NEW ORDER FOR XRAY OF LEFT LEG.
[2021-01-30 08:09] VITALS: BP 106/38
[2021-01-30 08:35] LABS: BASOPHILS 0 % (0-2); EOSINOPHILS 2.1 % (0-7); HEMATOCRIT 26.6 % (36.0-48.0); HEMOGLOBIN 8.1 g/dL (12-16); LYMPHOCYTE ABS# 0.64 10x3/uL (1.18-3.74); LYMPHOCYTES 10.6 % (15-50); MCH 30.1 pg (26.0-34.0); MCHC 30.5 g/dL (31.0-37.0); MCV 98.9 fL (80.0-100.0); MEAN PLATELET VOLUME 12.5 fL (7.4-10.4); MONOCYTES 7.3 % (2-11); NEUTROPHIL ABS# 4.84 10x3/uL (1.56-6.13); PLATELET COUNT 72 10x3/uL (130-400); RBC 2.69 10x6/uL (4.00-5.40); RDW 15.6 % (11.5-14.5); WBC 6.1 10x3/uL (4.8-10.8)
[2021-01-30 08:39] LABS: ANION GAP 13.3 mmol/L (8-16); CARBON DIOXIDE 22.4 mmol/L (21.0-32.0); CREATININE - SERUM 1.6 mg/dL (0.6-1.3); POTASSIUM - SERUM 4.7 mmol/L (3.5-5.1)
--- NOTE | 2021-01-30 13:21 | NUR ---
DOPPLER DONE TO RULE OUT DVT. SHE IS STILL C/O DISCOMFORT TO LLE. LEG IS SWOLLEN. STILL WAITING ON SHIP SELF DEFENSE SYSTEM MK1 OPERATOR FROM [facility]THO.
[2021-01-30 13:32] LABS: PLATELET ESTIMATE DECREASED
[2021-01-30 13:33] LABS: ANISOCYTOSIS OCC; ROULEAUX OCC
[2021-01-30 17:12] VITALS: Ht 162.6 cm; Wt 72.1 kg
--- NOTE | 2021-01-30 18:42 | NUR ---
MUSCLE RELAXOR GIVEN LATE AT PT REQUEST
--- NOTE | 2021-01-30 18:43 | NUR ---
PT HAD ULTRA SOUND AND XRAY OF LLE. PER ABIGAIL KING, COOK SHORT ORDER SHE IS WBAT. DR SHAW HAS BEEN CONSULTED ABOUT LLE. HER LEFT LEG IS STILL SWOLLEN AND PAINFUL.
--- NOTE | 2021-01-30 18:53 | NUR ---
BEDSIDE REPORT COMPLETE. RECEIVED PT LYING IN BED, ALERT AND ORIENTED X4. C/O DISCOMFORT BLE. RIGHT KNEE IMMOBILIZER IN PLACE. NO OXYGEN. LEFT FOREARM IV SALINE LOCKED, PATENT. DRESSING AND SWAB CAP INTACT. GENERALIZED BRUISING FROM FALL AT HOME. DENIES ANY NEEDS. CALL LIGHT AND WATER WITHIN REACH. JA ALARM ON. CPOC
[2021-01-30 21:44] VITALS: BP 110/30
--- NOTE | 2021-01-31 02:53 | NUR ---
PT LYING IN BED SUPINE EYES CLOSED RESTING. HEELS BRIDGED. RR EVEN AND UNLABORED. JA ALARM ON
[2021-01-31 07:25] LABS: BASOPHILS 0.2 % (0-2); EOSINOPHILS 1.7 % (0-7); HEMATOCRIT 28.6 % (36.0-48.0); HEMOGLOBIN 8.7 g/dL (12-16); IMMATURE GRANULOCYTES 0.2 % (0-5); LYMPHOCYTE ABS# 0.56 10x3/uL (1.18-3.74); LYMPHOCYTES 8.6 % (15-50); MCH 30.1 pg (26.0-34.0); MCHC 30.4 g/dL (31.0-37.0); MEAN PLATELET VOLUME 11.8 fL (7.4-10.4); MONOCYTES 5.5 % (2-11); NEUTROPHIL ABS# 5.45 10x3/uL (1.56-6.13); NEUTROPHILS 83.8 % (40-80); PLATELET COUNT 75 10x3/uL (130-400); RBC 2.89 10x6/uL (4.00-5.40); WBC 6.5 10x3/uL (4.8-10.8)
[2021-01-31 07:32] LABS: ANION GAP 15.4 mmol/L (8-16); CALCIUM 9.1 mg/dL (8.5-10.1); CARBON DIOXIDE 19.8 mmol/L (21.0-32.0); CREATININE - SERUM 1.3 mg/dL (0.6-1.3); POTASSIUM - SERUM 5.2 mmol/L (3.5-5.1)
[2021-01-31 08:00] VITALS: BP 102/45
--- NOTE | 2021-01-31 15:27 | NUR ---
RESTING QUIETLY IN BED. HAS RESTED MORE TODAY C/O NOT SLEEPING WELL LAST PM. STILL HAS PAIN TO LLE AND RLE IS IN IMMOBILIZER. GETS UP TO USE RESTROOM. CALL LIGHT IN REACH
--- NOTE | 2021-01-31 16:11 | NUR ---
Nutrition Follow-up: Diet: Diabetic PO intake: ~46% average x last 6 meals Last BM: 01/28/21 Wt: 159# (01/27/21) Meds noted: glimepiride, probiotics, micro-k, abx Labs noted: K 5.2(H), BUN 34(H), GFR 41(L), Glu 62(L), POC Glu 63(L) Recommend continue current diet, may consider potassium restriction if K does not start trending down. Offer oral nutrition supplements of [place]. RD will follow-up 02/03/21.
--- NOTE | 2021-01-31 18:21 | NUR ---
IV TO LUE LEAKING. REHAB NURSE UNABLE TO GET NEW LINE. ICU NURSE CAME TO SITE NEW LINE AND AFTER WHICH PT C/O NOT FEELING RIGHT. V/S WNL. FSBS IN 30'S. SUPPER TRAY GIVEN, SHE ATE 30%. CHOCOLATE ICE CREAM ALSO GIVEN. SHE STARTED FEELING BETTER. DTR IN ROOM WITH PT. NEW IV LINE TO LEFT UPPER ARM.
--- NOTE | 2021-01-31 18:58 | NUR ---
BEDSIDE REPORT COMPLETED. RECEIVED PT LYING IN BED ON PHONE. ALERT AND ORIENTED X4. DENIES ANY NEEDS OR PAIN. LEFT UPPER ARM IV INFILTRATED. REDDNESS AND SWELLING AROUND IV SITE NOTED. WILL D/C. RIGHT KNEE IMMOBILIZER IN PLACE. NO SKIN ISSUES UNDER IMMOBILIZER NOTED. RIGHT ARM RESERVE HX LYMPH NODE REMOVAL R/T BREAST CANCER. NO DISTRESS NOTED. CALL LIGHT AND WATER WITHIN REACH. JA ALARM ON .CPOC
[2021-01-31 19:00] VITALS: BP 127/33
--- NOTE | 2021-01-31 20:10 | NUR ---
CALLED DR. STEARNS TO GET AUTHORIZATION TO PLACE IV IN RESERVE ARM. DR. STEARNS AUTHORIZED RIGHT FOREARM IV TO BE PLACED FOR ABX THERAPY.
--- NOTE | 2021-01-31 20:20 | NUR ---
PARALEGAL SECRETARY PIPO STARTED RIGHT FOREARM 20G IV X1 ATTEMPT. FLUSHES AND DRAWS WITHOUT DIFFICULTY. PT TOLERATED WELL.
--- NOTE | 2021-01-31 20:30 | NUR ---
LEFT UPPER ARM IV D/C WITH CATH TIP INTACT. PRESSURE APPLIED. BANDAID PLACED. PT TOLERATED WELL.
--- NOTE | 2021-01-31 23:34 | NUR ---
PT LYING IN BED EYES CLOSED RESTING. RR EVEN AND UNLABORED. CALL LIGHT WITHIN REACH. JA ALARM ON
--- NOTE | 2021-02-01 03:10 | NUR ---
PT LYING IN BED SUPINE EYES CLOSED RESTING. RR EVEN AND UNLABORED. JA ALARM ON
--- NOTE | 2021-02-01 06:37 | NUR ---
FSBS 37. PT IS ASYMPTOMATIC. PROVIDED 4 OZ OJ WITH JNENIFER QUINONES AND PB. ORDERED STAT GLUCOSE.
[2021-02-01 07:54] VITALS: BP 125/42
--- NOTE | 2021-02-01 08:00 | NUR ---
SHIFT ASSMT COMPLETED.
--- NOTE | 2021-02-01 16:37 | NUR ---
CARE TEAM MEETING: PATIENT FAMILY ATTNED THE MEETING. QUESTIONS AND CONCERNS WERE ADDRESSED. HER TENATIVE DC DATE IS 02/09/21. DISCHARGE PLANS ARE FOR HER TO RETURN TO HER APARTMENT AT [facility]. WILL CALL [facility] TO COME AND EVALUATE PATIENT PRIOR TO DISCHARGE.
--- NOTE | 2021-02-01 20:01 | NUR ---
AWAKE AND ALERT. RESTING IN BED WITH RESPIRATIONS UNLABORED. IMMOBILIZER IN PLACE TO RIGHT LOWER LEG. NO DISTRESS NOTED.
[2021-02-01 21:29] VITALS: BP 121/52
--- NOTE | 2021-02-02 05:01 | NUR ---
SLEPT AT INTERVALS. RECENTLY MEDICATED FOR PAIN SEE MAR. NO ACUTE CHANGES IN CONDITION THIS SHIFT. RESTING IN BED WITH NO DISTRESS NOTED.
--- NOTE | 2021-02-02 06:07 | NUR ---
BLOOD SUGAR 60. DID NOT GIVE JARDIANCE. MESSAGE LEFT ON ROUNDING SHEET FOR DR STEARNS.
[2021-02-02 07:49] VITALS: BP 108/47
--- NOTE | 2021-02-02 19:00 | RHP ---
PATIENT: GERI ARZOLA MEDICAL RECORD: [id number] ACCOUNT: [id number] LOCATION:[facility]1117 : 36 ADMISSION DATE: 01/26/21 REHABILITATION HISTORY AND PHYSICAL EXAMINATION POST ADMISSION PHYSICIAN EXAMINATION POST ADMISSION PHYSICAL EXAMINATION AND HISTORY AND PHYSICAL ADMITTING DIAGNOSIS: Tibial plateau fracture. HISTORY OF PRESENT ILLNESS: The patient is an 85-year-old female patient who sees Dr. Mayers, who states that she had a recent fall requiring a kyphoplasty about 2 weeks prior to this. She recently moved to an assisted living facility, continued to have some right hip pain. Saw Dr. Galarza. He did some injections and it improved her pain, but she was still having difficulty walking. On 01/24/2021, she stated while attempting to get to the bathroom, she lost her balance and fell. She reports immediate right leg pain. She denied any loss of consciousness or any other associated complaints. Orthopedic surgery was consulted. She was admitted to the orthopedic floor for further evaluation, monitoring and treatment. The patient was placed on a diabetic diet. Her UA was obtained. She was placed on IV antibiotics. She was doing fingerstick blood sugars. She apparently had a low blood sugar in the ER, but it was after being in the Emergency Room for 9 hours without eating. She was seen and evaluated by Dr. Petit, the orthopedic surgeon, who noted fractures along the posterior aspect of the plateau, which appeared to be mostly out of the weightbearing portion of the joint. He discussed with the patient and family and felt like conservative therapy was a way to go. She is partial weightbearing on her right lower extremity at 50%. She has got a knee immobilizer to use with ambulation and transfers. Physical therapy is working with her at this time. She is mid to mod assist with ADLs and mod assist for mobility. She will require intensive therapy and interdisciplinary PT, OT and speech therapy and case management in order to return back to her prior level of functioning. She is currently being monitored closely for lab values, medication adjustments, pain control. She has got decreased activity tolerance, proximal muscle weakness, balance deficits, decreased range of motion, impaired mobility, dyspnea on exertion. He is a high fall risk and self-care deficits. These are all barriers to her discharge at this time. COMORBIDITIES: Include a fall, leukocytosis, recent vertebroplasty, neuropathy, obstructive sleep apnea, chronic back pain, and osteoarthritis. PAST MEDICAL HISTORY: Significant for hypertension, hypothyroidism, diabetes, neuropathy, obstructive sleep apnea, osteoarthritis, chronic back pain. She has had skin and breast cancer. PAST SURGICAL HISTORY: Includes back surgery, cholecystectomy, appendectomy, hysterectomy, right arm and shoulder repair. ALLERGIES: PREDNISONE. CURRENT MEDICATIONS: Include Floranex daily. She is on Rocephin 1 gram q.24, vitamin E 200 units daily, spironolactone 50 mg daily, potassium 10 mEq daily, Cozaar 50 mg daily, Celebrex 200 mg daily, and allopurinol 300 mg daily. She is on a glucose replacement protocol. She is on Synthroid 50 mcg daily, Requip 1 mg at bedtime, methocarbamol 500 mg q.i.d., Lyrica 75 mg b.i.d., Neurontin 200 HISTORY AND PHYSICAL [id number] DARIUSZ,GERI L mg at bedtime, Aricept 10 mg at bedtime. She is on a low resistance sliding scale insulin. Valier 10/325 one tab q.6 hours p.r.n., Tylenol as needed, and MiraLax 17 grams once daily. HABITS: No alcohol or tobacco use. FAMILY HISTORY: Noncontributory. SOCIAL HISTORY: The patient hopes to return back home and get back to her prior level of functioning. REVIEW OF SYSTEMS: GENERAL: Does complain of a little weakness, fatigue. HEENT: Denies cold, cough or congestion. CARDIOVASCULAR: Denies any chest pain. PHYSICAL EXAMINATION: VITAL SIGNS: Stable. She is afebrile. GENERAL: Elderly female, in no acute distress upon exam. HEENT: Normocephalic and atraumatic. Mucosa moist. NECK: Supple with no lymphadenopathy. LUNGS: Clear at this time. No wheezing or rales. HEART: Regular rate and rhythm. No murmurs, rubs or gallops. ABDOMEN: Soft, benign, nondistended. Positive bowel sounds times 4. EXTREMITIES: Post fall area looks pretty good. She does have some bruising to her knee region. NEUROLOGIC: She is mainly intact. LABORATORY DATA: White count is 4000, H&H 8.9 and 29.3, and platelet count is noted to be 60,000. Her sodium is 143, potassium 4.8, BUN and creatinine of 51 and 1.8 and blood sugar is noted to be 134. ASSESSMENT: This is an 85-year-old female patient admitted to rehab with a working diagnosis of tibial plateau fracture, which will be managed conservatively. The patient has potential to make improvement. We instituted the following multidisciplinary therapies including, not limited to physical, occupational, respiratory, speech, nutritional services, prosthetics and orthotics. Given her complex medical condition and risk of further medical complications, rehabilitation services cannot be provided at a low level of care such as fci facility. PLAN: 1. Admit to [facility] for inpatient therapy to include the following disciplines; A. Physical therapy to improve gait, all transfer skills and bed mobility to a modified independent level. B. Occupational therapy to improve activities of daily living. C. Case management to help with discharge planning and placement options. D. Nutrition to assist with nutritional needs. E. Rehabilitation nursing to assist in monitoring the patient's underlying medical conditions and to assist with any type of bowel or bladder management. 2. The patient's current medication and medical care will be continued 3. Placed on standard fall precautions. 4. The patient's estimated length of stay is approximately 7-10 days. 5. Discuss this patient during care team staff meeting this week. HISTORY AND PHYSICAL [id number] GERI ARZOLA TRANSINT:[id number] Voice Confirmation ID: [id number] DOCUMENT ID: [id number] JORDY notes whether there has been none or any medical/functional change since admission: - No change since preadmission screen. JORDY attests patient continues to be appropriate for IRF: - Continues to be appropriate. IMELDA STEARNS MD at 1900 CC: [id number] DICTATION DATE: 01/27/21 0851 WASTE HANDLING TECHNICIAN: 01/27/21 0957 ADM IN [facility] [address] [id number]
--- NOTE | 2021-02-02 19:17 | NUR ---
AWAKE AND ALERT. RESTING IN BED WITH RESPIRAITONS UNLABORED. IMMOBILIZER IN PLACE TO RIGHT LEG. NEREIDA WRAP IN PLACE TO LEFT LOWER LEG. NO ACUTE DISTRESS NOTED. CALL LIGHT IN REACH.
[2021-02-02 21:49] VITALS: BP 121/43
--- NOTE | 2021-02-03 04:51 | NUR ---
QUIET HOURS. NO ACUTE CHANGES IN CONDITION THIS SHIFT. RESTING IN BED WITH NO DISTRESS NOTED.
[2021-02-03 07:51] LABS: BASOPHILS 0.2 % (0-2); EOSINOPHILS 3.2 % (0-7); HEMOGLOBIN 7.7 g/dL (12-16); IMMATURE GRANULOCYTES 0.4 % (0-5); LYMPHOCYTE ABS# 0.82 10x3/uL (1.18-3.74); LYMPHOCYTES 16.2 % (15-50); MCH 30.1 pg (26.0-34.0); MCHC 30.8 g/dL (31.0-37.0); MCV 97.7 fL (80.0-100.0); MEAN PLATELET VOLUME 12.8 fL (7.4-10.4); MONOCYTES 11.1 % (2-11); NEUTROPHIL ABS# 3.48 10x3/uL (1.56-6.13); NEUTROPHILS 68.9 % (40-80); PLATELET COUNT 89 10x3/uL (130-400); RBC 2.56 10x6/uL (4.00-5.40); RDW 15.9 % (11.5-14.5); WBC 5.1 10x3/uL (4.8-10.8)
[2021-02-03 08:00] LABS: ANION GAP 13.2 mmol/L (8-16); CALCIUM 8.9 mg/dL (8.5-10.1); CARBON DIOXIDE 21.3 mmol/L (21.0-32.0); CREATININE - SERUM 1.5 mg/dL (0.6-1.3); POTASSIUM - SERUM 5.5 mmol/L (3.5-5.1)
[2021-02-03 08:20] VITALS: BP 131/48
[2021-02-03 08:50] LABS: ANISOCYTOSIS 1+; PLATELET ESTIMATE DECREASED
--- NOTE | 2021-02-03 11:59 | NUR ---
IN THERAPY GYM WORKING WITH THERAPISTS. HAS C/O PAIN AND DISCOMFORT TO LLE TODAY. RLE IN IMMOBILIZER.
--- NOTE | 2021-02-03 14:00 | NUR ---
NUTRITION FOLLOW UP: COMMENTS: Patient PO decreased. She ate 25% of breakfast this am. MD to hold spironolatone due to high K levels. DIET: Diabetic Diet PO INTAKE: 36% avg for last 7 meals WEIGHT: 01/27-159 lbs BM: x 2 on 02/01 SIG MEDS: Jardiance, Probiotic, Vit E, KCl, Synthroid SIG LABS: K-5.5(H), Cl-109(H), BUN-34(H), Cr-1.5(H) RECOMMENDATIONS: Continue DM diet as tolerated Encourage low potassium foods due to high K levels Encourage PO intake Consider appetite stimulant due to low PO intake RD to follow up within 7 days
--- NOTE | 2021-02-03 18:52 | NUR ---
BEDSIDE REPORT COMPLETED. RECEIVED PT LYING IN BED. ALERT AND ORIENTED X4. DENIES ANY NEEDS. C/O MILD BLE DISCOMFORT. NO PAIN MEDS REQUESTED. RIGHT LE IMMOBILIZER IN PLACE. REMOVED AND ASSESSED SKIN FOR BREAKDOWN. NO BREAKDOWN NOTED. LEFT ANKLE NEREIDA WRAP INTACT FOR SUPPORT. RIGHT FOREARM IV PATENT. NO S/S OF INFILTRATION NOTED. DRESSING AND SWAB CAP INTACT. NO OXYGEN NOTED. JA ALARM ON. LUE BRUISING NOTED. CALL LIGHT AND WATER WITHIN REACH. CPOC
[2021-02-03 20:24] VITALS: BP 141/50
--- NOTE | 2021-02-03 23:57 | NUR ---
PT LYING IN BED EYES CLOSED RESTING. RR EVEN AND UNLABORED. JA ALARM ON
--- NOTE | 2021-02-04 03:02 | NUR ---
PT LYING IN BED ON SUPINE EYES CLOSED RESTING. RR EVEN AND UNLABORED. JA ALARM ON.
--- NOTE | 2021-02-04 05:51 | NUR ---
PT LYING IN BED C/O 03/23 BLE DEEP RADIATING BURNING ACHE. PAIN MEDICATION REQUESTED AND ADMININSTERED PER EMAR. TOILETING OFFERED PT DENIES NEED. FSBS 115. PT DENIES ANY OTHER NEEDS. NO ACUTE CHANGES IN CONDITION NOTED THIS SHIFT. CALL LIGHT AND WATER WITHIN REACH. JA ALARM ON
[2021-02-04 08:32] LABS: ANION GAP 15.4 mmol/L (8-16); CALCIUM 9.4 mg/dL (8.5-10.1); CARBON DIOXIDE 19.6 mmol/L (21.0-32.0); CREATININE - SERUM 1.5 mg/dL (0.6-1.3)
[2021-02-04 08:55] VITALS: BP 121/47
--- NOTE | 2021-02-04 09:42 | NUR ---
LAYING IN BED RESTING. LLE ELEVATED IN PILLOWS. SHE REQUEST NEREIDA WRAP TO LLE BE REMOVED DUE TO DISCOMFORT. NEREIDA WRAP STILL TO LEFT ANKLE. RLE HAS IMMOBILIZER ON IT. MOD ASST TO TRANSFER. 3+ EDEMA TO LLE. PEDAL PULSES PRESENT X2. CALL LIGHT IN REACH. BED IN LOWEST POSITION. SIDE RAILS UP X2.
--- NOTE | 2021-02-04 18:55 | NUR ---
BEDSIDE REPORT COMPLETED. RECEIVED PT SITTING UP IN W/C. ASSISTED PT WITH TRANSFER FROM W/C TO BED WITH MOD ASSIST. POSITIONED PT ON RIGHT SIDE USING PILLOWS FOR SUPPORT. PT DENIES ANY NEEDS OR PAIN. NO DISTRESS NOTED. RIGHT FOREARM IV PATENT. NO SIGNS OF INFILTRATION OR INFECTION NOTED. DRESSING AND SWAB CAP INTACT. CALL LIGHT AND WATER WITHIN REACH. JA ALARM ON. CPOC
[2021-02-04 21:01] VITALS: BP 126/42
--- NOTE | 2021-02-04 23:30 | NUR ---
PT LYING IN BED ON RIGHT SIDE EYES CLOSED RESTING. RR EVEN AND UNLABORED. CALL LIGHT WITHIN REACH. JA ALARM ON
--- NOTE | 2021-02-05 02:23 | NUR ---
PT CALLED WANTING BS CHECKED AND ASSISTANCE TO RESTROOM. FSBS 145, PT STATES SHE WOKE UP EARLIER D/T HAVING ANOTHER "OUT OF THE ORDINARY NONSENSE, NOT REALITY DREAM" AND ATE PART OF A MUFFIN. SHE RELATES THE DREAM TO LOW BS USUALLY. PT STATED SHE WAITED APPROXIMATELY 30MIN AFTER INGESTING THE MUFFIN BEFORE CALLING TO CHECK BS. INFORMED PT BS IS OK AND ASSISTED TO RESTROOM.
--- NOTE | 2021-02-05 03:45 | NUR ---
PT LYING IN BED SUPINE EYES CLOSED RESTING. RR EVEN AND UNLABORED. CALL LIGHT WITHIN REACH. JA ALARM ON
--- NOTE | 2021-02-05 10:16 | NUR ---
RESTING QUIETLY IN BED. EYES CLOSED. NO S/S DISTRESS NOTED, RESP EFFORT NON LABORED. CALL LIGHT IN REACH. RLE IMMPBILIZER IN PLACE. LLE NEREIDA WRAP TO LEFT ANKLE.
[2021-02-05 10:32] VITALS: BP 116/46
[2021-02-05 19:00] VITALS: BP 124/33
--- NOTE | 2021-02-06 00:12 | NUR ---
PT REPORTS PAIN RATED 6/10 AND "GETTING WORSE", PRN NORCO GIVEN PER PT REQUEST, ADVISED PT THAT NEXT NORCO COULD NOT BE GIVEN BEFORE 0410, PT VERBALIZED UNDERSTANDING.
--- NOTE | 2021-02-06 04:11 | NUR ---
PT WOKE WITH ACHING TO BILAT LOWER EXT. ASSISTED TO BATHROOM, PRN NORCO GIVEN PER PT REQUEST AND PT IS TAKING SHOWER WITH PCT ASSISTANCE, LINENS CHANGED. WILL CONT TO MONITOR.
[2021-02-06 08:19] LABS: ANION GAP 14.3 mmol/L (8-16); CALCIUM 8.9 mg/dL (8.5-10.1); CARBON DIOXIDE 20.3 mmol/L (21.0-32.0); CREATININE - SERUM 1.7 mg/dL (0.6-1.3); POTASSIUM - SERUM 5.6 mmol/L (3.5-5.1)
[2021-02-06 08:24] VITALS: BP 130/42
[2021-02-06 09:19] LABS: HEMATOCRIT 26.5 % (36.0-48.0); HEMOGLOBIN 8.1 g/dL (12-16); LYMPHOCYTE ABS# 0.54 10x3/uL (1.18-3.74); MCH 30.5 pg (26.0-34.0); MCHC 30.6 g/dL (31.0-37.0); MCV 99.6 fL (80.0-100.0); MEAN PLATELET VOLUME 12.3 fL (7.4-10.4); NEUTROPHIL ABS# 1.79 10x3/uL (1.56-6.13); PLATELET COUNT 94 10x3/uL (130-400); RBC 2.66 10x6/uL (4.00-5.40); RDW 16.5 % (11.5-14.5); WBC 2.9 10x3/uL (4.8-10.8)
--- NOTE | 2021-02-06 12:47 | NUR ---
Nutrition Follow-up: Diet: Diabetic PO intake: ~16% average x last 6 meals. States that she was eating well yesterday (50% - 50% - 75% x 3 meals yesterday). States that her appetite is not good currently 2/2 pain. Just got back from therapy and is in pain and upset that she wasn't able to do as much today. States that she would drink Glucerna if I sent it on meal trays. Last BM: 02/06/21 Wt: 159# (01/27/21) Meds noted: jardiance, probiotics, micro-k Labs noted: K 5.6(H), BUN 32(H), Cr 1.7(H), GFR 30(L), Glu 129(H) Recommend continue current diet. Will add Suplena with meals. Recommend MD to consider adding appetite stimulant as medically feasible. RD will follow-up 02/10/21.
[2021-02-06 14:17] LABS: EOSINOPHILS 3 % (0-7); LYMPHOCYTES 15 % (15-50); MONOCYTES 10 % (2-11); NEUTROPHILS 68 % (40-80); PLATELET ESTIMATE DECREASED
[2021-02-06 19:33] VITALS: BP 133/46
--- NOTE | 2021-02-06 19:33 | NUR ---
AWAKE AND ALERT. RESTING IN BED. A LITTLE TEARFUL. SHE STATES HER AND HER HAD A SPAT OVER FINANCES. SHE SAID SHE WILL BE FINE. RESPIRATIONS UNLABORED. CALL LIGHT IN REACH.
--- NOTE | 2021-02-07 05:11 | NUR ---
RESTING IN BED. RESPIRATIONS UNLABORED. SLEPT ON AND OFF. MEDICATED FOR PAIN PRN SEE DEC. MESSAGE LEFT FOR DR STEARNS FOR POSSIBLE ANXIETY MEDICATION.
[2021-02-07 07:16] LABS: ANION GAP 13.1 mmol/L (8-16); CALCIUM 9.5 mg/dL (8.5-10.1); CARBON DIOXIDE 21.2 mmol/L (21.0-32.0); CREATININE - SERUM 1.6 mg/dL (0.6-1.3); POTASSIUM - SERUM 5.3 mmol/L (3.5-5.1)
[2021-02-07 07:40] VITALS: BP 126/44
[2021-02-07 20:02] VITALS: BP 117/44
--- NOTE | 2021-02-08 02:02 | NUR ---
RECIEVED PATIENT IN BED RESTING, BED IN LOW POSITION AND LOCKED, SIDERAIL UP X 2 , WATER AND CALL LIGHT IN REACH, NO DISTRESS NOTED,
--- NOTE | 2021-02-08 02:05 | NUR ---
PRN NORC-10 GIVEN FOR LEG PAIN 8 OF 10, AT 00:39, REASSESSED AT 01:15 AND PATIENT WAS SLEEPING.
[2021-02-08 08:05] VITALS: BP 116/48
[2021-02-08 13:17] LABS: ANION GAP 17.1 mmol/L (8-16); BASOPHILS 0.7 % (0-2); CALCIUM 9.2 mg/dL (8.5-10.1); CARBON DIOXIDE 18.1 mmol/L (21.0-32.0); CREATININE - SERUM 1.5 mg/dL (0.6-1.3); EOSINOPHILS 1.7 % (0-7); HEMOGLOBIN 9.3 g/dL (12-16); IMMATURE GRANULOCYTES 1.2 % (0-5); LYMPHOCYTE ABS# 0.64 10x3/uL (1.18-3.74); LYMPHOCYTES 15.5 % (15-50); MCH 30.7 pg (26.0-34.0); MONOCYTES 5.3 % (2-11); NEUTROPHIL ABS# 3.13 10x3/uL (1.56-6.13); NEUTROPHILS 75.6 % (40-80); POTASSIUM - SERUM 5.2 mmol/L (3.5-5.1); RBC 3.03 10x6/uL (4.00-5.40); RDW 16.8 % (11.5-14.5); WBC 4.1 10x3/uL (4.8-10.8)
[2021-02-08 13:34] LABS: PLATELET COUNT 114 10x3/uL (130-400)
--- NOTE | 2021-02-08 16:26 | NUR ---
CARE TEAM MEETING: PATIENT IS DOING WELL IN THERAPY AND WILL DISCHARGE HOME ([facility]) 02/09/21. SORTER/ASSAY TECH TIME IS 2;15. A WHEELCHAIR HAS BEEN ORDERED FROM [employer]. WILL CONTINUE TO FOLLOW WITH PATIENT.
--- NOTE | 2021-02-08 18:55 | NUR ---
BEDSIDE REPORT COMPLETE. RECEIVED PT LYING IN BED. ALERT AND ORIENTED X4. C/O BILATERAL LOWER EXTREMITY DISCOMFORT 4/10 ACHING PAIN. PAIN MEDICATION ADMININSTERED HOUR AGO PER EMAR. RIGHT FOREARM IV WITHOUT REDNESS. DRESSING INTACT. RIGHT LE IMMOBILIZER IN PLACE. BRUISING NOTED TO BILATERAL LE AND LEFT ANKLE. CALL LIGHT AND WATER WITHIN REACH. FALL PRECAUTIONS IN PLACE. JA ALARM ON. CPOC
[2021-02-08 19:30] VITALS: BP 127/42
[2021-02-08 20:40] VITALS: BP 127/42
--- NOTE | 2021-02-09 00:38 | NUR ---
PT LYING IN BED SUPINE EYES CLOSED RESTING. RR EVEN AND UNLABORED. HEELS FLOATED. CALL LIGHT WITHIN REACH. JA ALARM ON
--- NOTE | 2021-02-09 04:38 | NUR ---
PT LYING IN BED EYES CLOSED RESTING. RR EVEN AND UNLABORED. JA ALARM ON
--- NOTE | 2021-02-09 04:58 | NUR ---
ASSISTED PT TO RESTROOM AND BACK TO BED WITH MIN ASSIST. PT C/O 05/23 BILATERAL LEG DEEP BURNING ACHE. REQUESTS PAIN MEDICATION. NO OTHER NEEDS VOICED. CALL LIGHT AND WATER WITHIN REACH. JA ALARM ON.
[2021-02-09 07:56] VITALS: BP 121/44
[2021-02-09] MEDS ORDERED: HYDROCODON-ACE1 EA10 PO (08:47)
--- NOTE | 2021-02-09 09:49 | NUR ---
PT RESTING IN BED WITH EYES OPEN CALL LIGHT IN REACH WILL MONITER
--- NOTE | 2021-02-09 09:50 | NUR ---
PATIENT DISCHARGING HOME TODAY WITH FAMILY. [facility] WILL RESUME THERAPY AT HOME. HOUSE WILL SEE PATIENT IN 7-10 DAYS AND SHE WILL SEE DR. RAMIREZ NEEDED. DR. MAYEN 02/24/21 @ 9:20. JOSUE SIGNED, IMM SERVED AND EXPLAINED, ONE GIVEN TO PATIENT AND ONE FILED IN CHART. NO COMPARE DATA REVIEWED PER PATIENT REQUEST. DISCHARGE INSTRUCTIONS FAXED TO PCP, HOME HEALTH, [facility] AND REVIEWED WITH PATIENT.
--- NOTE | 2021-02-09 16:12 | NUR ---
PT DISCHARGED TO [facility] WITH HAND WOOD SANDER VIA WHEELCHAIR.DISCHARGE SUMMARY AND MEDS AND PRESCIPTION FOR [place] SENT WITH PT. TOLERATED WELL
== END 2021-02-09 16:19 | disposition home health service (06) | DRG 560 ==
LOC: D.REHAB 16:27
PROVIDERS: ADMIT Emergency Medicine; ATTEND Emergency Medicine
DX: S82.143D Displaced bicondylar fracture of unspecified tibia, subsequent encounter for closed fracture with routine healing (principal); N17.9 Acute kidney failure, unspecified; W19.XXXD Unspecified fall, subsequent encounter; G47.33 Obstructive sleep apnea (adult) (pediatric); M19.90 Unspecified osteoarthritis, unspecified site; G89.29 Other chronic pain; M54.9 Dorsalgia, unspecified; D72.829 Elevated white blood cell count, unspecified; E11.649 Type 2 diabetes mellitus with hypoglycemia without coma; K21.9 Gastro-esophageal reflux disease without esophagitis; E11.40 Type 2 diabetes mellitus with diabetic neuropathy, unspecified

== ENCOUNTER 2021-02-11 12:17 | Inpatient (IN) | payer MEDICARE, OTHER ==
[~2021-02-11] VITALS: Ht 162.6 cm; Wt 77.1 kg
[2021-02-11 12:34] LABS: BILIRUBIN NEGATIVE (NEGATIVE); KETONE NEGATIVE (NEGATIVE); NITRITE NEGATIVE (NEGATIVE); UROBILINOGEN NORMAL mg/dL (< 2)
[2021-02-11 12:43] LABS: UDS - AMPHET NEGATIVE QUAL (NEGATIVE); UDS - BARB NEGATIVE QUAL (NEGATIVE); UDS - BENZO NEGATIVE QUAL (NEGATIVE); UDS - COCAINE NEGATIVE QUAL (NEGATIVE); UDS - OPIATE POSITIVE QUAL (NEGATIVE); UDS - PCP NEGATIVE QUAL (NEGATIVE); UDS - THC NEGATIVE QUAL (NEGATIVE)
[2021-02-11 13:57] LABS: BASOPHILS 0.2 % (0-2); EOSINOPHILS 0.4 % (0-7); HEMATOCRIT 30.4 % (36.0-48.0); HEMOGLOBIN 9.3 g/dL (12-16); IMMATURE GRANULOCYTES 0.6 % (0-5); LYMPHOCYTE ABS# 0.46 10x3/uL (1.18-3.74); LYMPHOCYTES 8.7 % (15-50); MCH 30.6 pg (26.0-34.0); MCHC 30.6 g/dL (31.0-37.0); MONOCYTES 4.9 % (2-11); NEUTROPHILS 85.2 % (40-80); RBC 3.04 10x6/uL (4.00-5.40); RDW 17.6 % (11.5-14.5); WBC 5.3 10x3/uL (4.8-10.8)
[2021-02-11 14:00] LABS: PLATELET COUNT 75 10x3/uL (130-400)
[2021-02-11 14:04] LABS: APTT 32.9 SECONDS (22.8-39.4); INR 1.19 (0.85-1.17)
[2021-02-11 14:14] LABS: CALC OSMOLALITY 288 mosm/kg (275-300); CALCIUM 8.9 mg/dL (8.5-10.1); CHLORIDE - SERUM 110 mmol/L (98-107); CREATININE - SERUM 1.6 mg/dL (0.6-1.3); GLUCOSE 108 mg/dL (74-106); POTASSIUM - SERUM 4.6 mmol/L (3.5-5.1); SODIUM 141 mmol/L (136-145); UREA NITROGEN 32 mg/dL (7-18); eGFR NON AFRICAN AMERICAN 32 mL/min (90-120)
[2021-02-11 14:25] LABS: PLATELET ESTIMATE DECREASED
[2021-02-11 14:32] LABS: ALBUMIN 2.7 g/dL (3.4-5.0); ALKALINE PHOSPHATASE 286 U/L (30-120); ALT (SGPT) 23 U/L (10-68); BILIRUBIN - TOTAL 0.54 mg/dL (0.2-1.3); CKMB 2.1 U/L (0.0-3.6); CREATINE KINASE 67 UL (21-215); MAGNESIUM - SERUM 1.9 mg/dL (1.8-2.4); PROTEIN - SERUM 5.7 g/dL (6.4-8.2); THYROID STIMULATING HORMONE 0.48 uIU/mL (0.36-3.74); TROPONIN-I < 0.017 ng/mL (0.000-0.060)
[2021-02-11 18:04] VITALS: BMI 29.2
[2021-02-11 19:54] VITALS: BP 136/39
[2021-02-12] VITALS (7 sets, daily range): BP systolic 111–166; BP diastolic 38–94
[2021-02-12 06:18] LABS: BASOPHILS 0.3 % (0-2); EOSINOPHILS 2.1 % (0-7); HEMATOCRIT 27.1 % (36.0-48.0); HEMOGLOBIN 8.3 g/dL (12-16); IMMATURE GRANULOCYTES 0.5 % (0-5); LYMPHOCYTE ABS# 0.69 10x3/uL (1.18-3.74); LYMPHOCYTES 18.4 % (15-50); MCH 30.3 pg (26.0-34.0); MCHC 30.6 g/dL (31.0-37.0); MCV 98.9 fL (80.0-100.0); MEAN PLATELET VOLUME 10.4 fL (7.4-10.4); MONOCYTES 9.8 % (2-11); NEUTROPHIL ABS# 2.59 10x3/uL (1.56-6.13); NEUTROPHILS 68.9 % (40-80); PLATELET COUNT 89 10x3/uL (130-400); RBC 2.74 10x6/uL (4.00-5.40); RDW 17.5 % (11.5-14.5)
[2021-02-12 06:19] LABS: WBC 3.8 10x3/uL (4.8-10.8)
[2021-02-12 07:12] LABS: ANION GAP 12.9 mmol/L (8-16); BILIRUBIN - TOTAL 0.37 mg/dL (0.2-1.3); CALCIUM 8.6 mg/dL (8.5-10.1); CARBON DIOXIDE 19.2 mmol/L (21.0-32.0); CREATININE - SERUM 1.4 mg/dL (0.6-1.3); PHOSPHOROUS 3.2 mg/dL (2.5-4.9); POTASSIUM - SERUM 4.1 mmol/L (3.5-5.1); PROTEIN - SERUM 4.9 g/dL (6.4-8.2)
--- NOTE | 2021-02-12 13:42 | NUR ---
PT ALERT AND ORIENTED, LYING IN BED WATCHING T/V. PT HAS BEEN UP TO THE BEDSIDE COMMDE WITH STANDBY ASSIST. NO COMPLAINTS OR CONCERNS AT THIS TIME. CL IN REACH, SRX2.
--- NOTE | 2021-02-12 18:20 | NUR ---
PT ALERT AND ORIENTED, LYING IN BED WATCHING T/V POST SUPPER. ATE ALL FOOD WITH NO COMPLICATIONS NOTED OR REPORTED. NO COMPLAINTS OR CONCERNS AT THIS TIME. CL IN REACH, SRX2.
[2021-02-13 02:59] VITALS: BP 102/39
[2021-02-13 07:22] LABS: BASOPHILS 0.2 % (0-2); EOSINOPHILS 2.1 % (0-7); HEMATOCRIT 26.6 % (36.0-48.0); HEMOGLOBIN 7.9 g/dL (12-16); IMMATURE GRANULOCYTES 0.4 % (0-5); LYMPHOCYTE ABS# 0.81 10x3/uL (1.18-3.74); LYMPHOCYTES 17.2 % (15-50); MCH 29.8 pg (26.0-34.0); MCHC 29.7 g/dL (31.0-37.0); MCV 100.4 fL (80.0-100.0); MONOCYTES 9.5 % (2-11); NEUTROPHIL ABS# 3.33 10x3/uL (1.56-6.13); NEUTROPHILS 70.6 % (40-80); PLATELET COUNT 92 10x3/uL (130-400); RBC 2.65 10x6/uL (4.00-5.40); WBC 4.7 10x3/uL (4.8-10.8)
[2021-02-13 07:40] LABS: PLATELET ESTIMATE DECREASED
[2021-02-13 07:42] LABS: ALBUMIN 2.1 g/dL (3.4-5.0); ANION GAP 15.5 mmol/L (8-16); BILIRUBIN - TOTAL 0.4 mg/dL (0.2-1.3); CALCIUM 8.3 mg/dL (8.5-10.1); CARBON DIOXIDE 16.7 mmol/L (21.0-32.0); CREATININE - SERUM 1.3 mg/dL (0.6-1.3); MAGNESIUM - SERUM 1.7 mg/dL (1.8-2.4); PHOSPHOROUS 3.1 mg/dL (2.5-4.9); POTASSIUM - SERUM 4.2 mmol/L (3.5-5.1); PROTEIN - SERUM 4.6 g/dL (6.4-8.2)
[2021-02-13 08:45] LABS: PROTIME 16.5 SECONDS (11.6-15.0)
[2021-02-13 08:46] LABS: INR 1.47 (0.85-1.17)
[2021-02-13 09:19] VITALS: BP 99/54
[2021-02-13 13:21] VITALS: BP 101/65; BP 108/45
--- NOTE | 2021-02-13 13:45 | NUR ---
PATIENT ABLE TO GET HERSELF UP TO BEDSIDE AND STAND. PATIENT TRANSFERRED TO [facility] WITH SBA. PATIENT THEN STOOD BACK UP WITH SBA AND WALKED AROUND BED WITH MIN ASST USING WALKER FOR ABOUT 10 FEET. PATIENT COMPLAINED OF BEING IN PAIN IN HER LEFT LEG.
--- NOTE | 2021-02-13 19:30 | NUR ---
PT IN BED, AAO X 4, RESP EVEN AND UNLABORED, NO DISTRESS NOTED, CL IN REACH, SR UP X 2.
[2021-02-13 20:00] VITALS: BP 116/53
[2021-02-14] VITALS: BP 124/43
--- NOTE | 2021-02-14 03:33 | NUR ---
IV TO LEFT WRIST REMOVED, IV WAS LEAKING, NEW 20 G PLACED TO LEFT AC AT THIS TIME.
[2021-02-14 04:00] VITALS: BP 119/48
--- NOTE | 2021-02-14 04:14 | NUR ---
I have reviewed this patient and I concur with the Shift Assessment completed by the Licensed Practical Nurse today this shift.
[2021-02-14 06:26] LABS: BASOPHILS 0.3 % (0-2); EOSINOPHILS 1.8 % (0-7); HEMOGLOBIN 7.6 g/dL (12-16); IMMATURE GRANULOCYTES 0.5 % (0-5); LYMPHOCYTE ABS# 0.72 10x3/uL (1.18-3.74); LYMPHOCYTES 18.6 % (15-50); MCHC 30.4 g/dL (31.0-37.0); MCV 98.8 fL (80.0-100.0); MEAN PLATELET VOLUME 11.5 fL (7.4-10.4); NEUTROPHIL ABS# 2.79 10x3/uL (1.56-6.13); NEUTROPHILS 71.8 % (40-80); PLATELET COUNT 89 10x3/uL (130-400); RBC 2.53 10x6/uL (4.00-5.40); WBC 3.9 10x3/uL (4.8-10.8)
[2021-02-14 06:43] LABS: INR 1.58 (0.85-1.17); PROTIME 17.5 SECONDS (11.6-15.0)
[2021-02-14 07:27] LABS: ANION GAP 16.5 mmol/L (8-16); BILIRUBIN - TOTAL 0.46 mg/dL (0.2-1.3); CALCIUM 8.3 mg/dL (8.5-10.1); CARBON DIOXIDE 16.4 mmol/L (21.0-32.0); CREATININE - SERUM 1.6 mg/dL (0.6-1.3); MAGNESIUM - SERUM 1.5 mg/dL (1.8-2.4); PHOSPHOROUS 3.1 mg/dL (2.5-4.9); POTASSIUM - SERUM 3.9 mmol/L (3.5-5.1); PROTEIN - SERUM 4.6 g/dL (6.4-8.2)
[2021-02-14 07:39] LABS: PLATELET ESTIMATE DECREASED
[2021-02-14 08:50] VITALS: BP 109/68
--- NOTE | 2021-02-14 11:01 | NUR ---
PRE TRANFUSION VS 116/53, 77, 18, 97.3. INSTRUCTED ON S/S OF REACTION. 1 UNIT BLOOD STARTED TRANSFUSING AT 1108 GOING AT 125ML/HR. WILL REMAIN AT BEDSIDE FOR FIRST 15 MINUTES AND THEN PER PROTOCOL.
--- NOTE | 2021-02-14 11:23 | NUR ---
15 MINUTES POST TRANSFUSION VS STABLE. NO S/S OF REACTION. INCREASE INFUSION TO 150ML/HR. WILL CONTINUE MONITORING THROUGHOUT INFUSION.
--- NOTE | 2021-02-14 13:58 | NUR ---
PATIENT ON HOLD FOR GETTING BLOOD, PER NSG.
[2021-02-14 16:18] VITALS: BP 121/59
--- NOTE | 2021-02-14 17:36 | NUR ---
RESTING IN BED. WOULD LIKE TO GET A SHOWER AFTER ANTIBIOTICS FINISH.
--- NOTE | 2021-02-14 19:30 | NUR ---
PT IN BED, AAO X 4, RESP EVEN AND UNLABORED, NO DISTRESS NOTED, CL IN REACH, SRU P X 2.
[2021-02-14 20:00] VITALS: BP 131/60
[2021-02-14 20:50] LABS: HEMATOCRIT 30.1 % (36.0-48.0); HEMOGLOBIN 9.3 g/dL (12-16)
[2021-02-15] VITALS: BP 112/47
--- NOTE | 2021-02-15 03:44 | NUR ---
I have reviewed this patient and I concur with the Shift Assessment completed by the Licensed Practical Nurse today this shift.
[2021-02-15 04:00] VITALS: BP 119/74
[2021-02-15 04:41] LABS: BASOPHILS 0.3 % (0-2); EOSINOPHILS 1.8 % (0-7); HEMATOCRIT 27.9 % (36.0-48.0); HEMOGLOBIN 8.7 g/dL (12-16); IMMATURE GRANULOCYTES 0.5 % (0-5); LYMPHOCYTE ABS# 0.62 10x3/uL (1.18-3.74); LYMPHOCYTES 16.3 % (15-50); MCH 30.4 pg (26.0-34.0); MCHC 31.2 g/dL (31.0-37.0); MCV 97.6 fL (80.0-100.0); MEAN PLATELET VOLUME 10.4 fL (7.4-10.4); MONOCYTES 7.9 % (2-11); NEUTROPHIL ABS# 2.78 10x3/uL (1.56-6.13); NEUTROPHILS 73.2 % (40-80); PLATELET COUNT 78 10x3/uL (130-400); RBC 2.86 10x6/uL (4.00-5.40); RDW 17.9 % (11.5-14.5); WBC 3.8 10x3/uL (4.8-10.8)
[2021-02-15 04:51] LABS: PLATELET ESTIMATE DECREASED
[2021-02-15 04:54] LABS: INR 1.47 (0.85-1.17); PROTIME 16.6 SECONDS (11.6-15.0)
[2021-02-15 05:06] LABS: ALBUMIN 2.1 g/dL (3.4-5.0); ANION GAP 14.9 mmol/L (8-16); BILIRUBIN - TOTAL 0.46 mg/dL (0.2-1.3); CALCIUM 8.2 mg/dL (8.5-10.1); CREATININE - SERUM 1.7 mg/dL (0.6-1.3); MAGNESIUM - SERUM 1.6 mg/dL (1.8-2.4); PHOSPHOROUS 3.2 mg/dL (2.5-4.9); POTASSIUM - SERUM 3.9 mmol/L (3.5-5.1); PROTEIN - SERUM 4.9 g/dL (6.4-8.2)
[2021-02-15 08:21] VITALS: BP 125/51
[2021-02-15 11:08] VITALS: BP 109/42
--- NOTE | 2021-02-15 19:32 | NUR ---
PT IN BED, AAO X 3, RESP EVEN AND UNLABORED, NO DISTRESS NOTED, CL IN REACH, SR UP X 2.
[2021-02-15 21:15] VITALS: BP 106/48
[2021-02-16] VITALS (7 sets, daily range): BP systolic 106–146; BP diastolic 42–63; Ht 162.6 cm; Wt 77.1 kg
--- NOTE | 2021-02-16 00:45 | NUR ---
I have reviewed this patient and I concur with the Shift Assessment completed by the Licensed Practical Nurse today this shift.
[2021-02-16 05:47] LABS: BASOPHILS 0.3 % (0-2); EOSINOPHILS 1.8 % (0-7); HEMATOCRIT 28.8 % (36.0-48.0); HEMOGLOBIN 9.1 g/dL (12-16); IMMATURE GRANULOCYTES 0.5 % (0-5); LYMPHOCYTE ABS# 0.67 10x3/uL (1.18-3.74); MCH 31.1 pg (26.0-34.0); MCHC 31.6 g/dL (31.0-37.0); MCV 98.3 fL (80.0-100.0); MEAN PLATELET VOLUME 9.9 fL (7.4-10.4); MONOCYTES 9.9 % (2-11); NEUTROPHIL ABS# 2.77 10x3/uL (1.56-6.13); NEUTROPHILS 70.5 % (40-80); PLATELET COUNT 63 10x3/uL (130-400); RBC 2.93 10x6/uL (4.00-5.40); WBC 3.9 10x3/uL (4.8-10.8)
[2021-02-16 05:57] LABS: INR 1.53 (0.85-1.17)
[2021-02-16 06:22] LABS: ALBUMIN 2.2 g/dL (3.4-5.0); ANION GAP 16.6 mmol/L (8-16); BILIRUBIN - TOTAL 0.53 mg/dL (0.2-1.3); CALCIUM 8.5 mg/dL (8.5-10.1); CARBON DIOXIDE 15.3 mmol/L (21.0-32.0); CREATININE - SERUM 1.5 mg/dL (0.6-1.3); MAGNESIUM - SERUM 1.6 mg/dL (1.8-2.4); PHOSPHOROUS 2.7 mg/dL (2.5-4.9); POTASSIUM - SERUM 3.9 mmol/L (3.5-5.1); PROTEIN - SERUM 4.7 g/dL (6.4-8.2)
[2021-02-16 06:50] LABS: PLATELET ESTIMATE DECREASED
--- NOTE | 2021-02-16 15:42 | NUR ---
OT NOTE: PT COMPLETED BUE AROM EXS TOLERATED AT EOB WITH SBA-CGA. PT COMPLETED SUPINE TO SIT WITH MIN A. PT COMPLETED SITTING BALANCE AXS WITH SBA-CGA. PT COMPLETED SIDE ROLLING WITH MIN A. PT COMPLETED FACE AND HAND HYGIENE WITH SETUP. [id number] MANDA SMALLS COTA
--- NOTE | 2021-02-16 19:17 | NUR ---
PT IN BED, AAO X 4, RESP EVEN AND UNLABORED, NO DISTRESS NOTED, CL IN REACH, SR UP X 2.
--- NOTE | 2021-02-17 03:18 | MORECARE ---
CASE MANAGEMENT DISCHARGE SUMMARY PATIENT: GERI ARZOLA UNIT: [id number] ADM DATE: 02/12/21 AGE: 85 : 36 SEX: F ROOM/BED: D.2103 AUTHOR: KELLEN,DOC PHYSICIAN: REFERRING PHYSICIAN: ORLANDO BA MD DATE OF SERVICE: 02/17/21 Case Management Discharge Planning Summary DCP REVIEW SUMMARY ANTICIPATED D/C DATE: EXPECTED LOS : CASE STATUS: DCP Initiated INITIAL REVIEW: 02/11/2021 INITIAL REVIEWER: Ayana Beasley FINAL DISCHARGE DISPOSITION: : FINAL REVIEWER: FINAL REVIEW DATE: DCP Focus Questions & Answers QUESTION: ANSWER : PATIENT: GERI ARZOLA ENCOUNTER: [id number] MEDICAL RECORD#: [id number] ADMISSION DATE: 02/12/2021 DISCHARGE DATE: ATTENDING MD: : AGE: 85 MARITAL STATUS: M DC PLAN ID: [id number] FACILITY: [facility] PRINTED ON: 02/17/21 3:18 CT All edits/amendments must be made on the electronic document DICTATION DATE: 02/17/21317 ELECTRICAL ACCESSORIES II ASSEMBLER: DM 02/17/21317 RPT#: [id number] DC DATE: STATUS: ADM IN [facility] [address] [place] [address] END OF REPORT
--- NOTE | 2021-02-17 03:22 | NUR ---
I have reviewed this patient and I concur with the Shift Assessment completed by the Licensed Practical Nurse today this shift.
[2021-02-17 05:33] VITALS: BP 112/55
[2021-02-17 06:09] LABS: BASOPHILS 0.6 % (0-2); HEMATOCRIT 25.3 % (36.0-48.0); HEMOGLOBIN 7.9 g/dL (12-16); IMMATURE GRANULOCYTES 0.6 % (0-5); INR 1.51 (0.85-1.17); LYMPHOCYTE ABS# 0.92 10x3/uL (1.18-3.74); LYMPHOCYTES 26.8 % (15-50); MCH 30.6 pg (26.0-34.0); MCHC 31.2 g/dL (31.0-37.0); MCV 98.1 fL (80.0-100.0); MEAN PLATELET VOLUME 10.2 fL (7.4-10.4); MONOCYTES 8.5 % (2-11); NEUTROPHIL ABS# 2.11 10x3/uL (1.56-6.13); NEUTROPHILS 61.5 % (40-80); PROTIME 16.9 SECONDS (11.6-15.0); RBC 2.58 10x6/uL (4.00-5.40); RDW 18.2 % (11.5-14.5); WBC 3.4 10x3/uL (4.8-10.8)
[2021-02-17 06:24] LABS: PLATELET COUNT 46 10x3/uL (130-400)
[2021-02-17 06:25] LABS: ANION GAP 15.6 mmol/L (8-16); BILIRUBIN - TOTAL 0.55 mg/dL (0.2-1.3); CALCIUM 8.6 mg/dL (8.5-10.1); CARBON DIOXIDE 17.5 mmol/L (21.0-32.0); CREATININE - SERUM 1.4 mg/dL (0.6-1.3); POTASSIUM - SERUM 4.1 mmol/L (3.5-5.1); PROTEIN - SERUM 4.7 g/dL (6.4-8.2)
[2021-02-17 07:01] VITALS: BP 100/60
--- NOTE | 2021-02-17 07:35 | NUR ---
LUNGS CLEAR BILATERALLY. PT STATES FEELING BETTER. REPORTS TO NURSE THAT SHE DOESNT WANT TO GO BACK TO WHERE SHE WAS AT IN REHAB. PT GETS UP TO BSC WITH MINIMAL ONE ASSIST.
[2021-02-17 11:08] VITALS: BP 143/60
[2021-02-17] MEDS ORDERED: CHRONULAC30 ML PO (13:38)
[2021-02-17] MEDS ORDERED: FLAGYL500 MG PO (13:40)
--- NOTE | 2021-02-17 15:07 | NUR ---
OT NOTE: PT COMPLETED SIDE ROLLING WITH MIN A. PT COMPLETED SUPINE TO SIT WITH CGA-MIN A. PT COMPLETED AMIRA SLIPPERS WITH MAX-TOTAL A. PT COMPLETED SIT TO STAND WITH MIN A USING RW. PT COMPLETED FACE AND HAND HYGIENE WITH SETUP. [id number] THANK YOU,KIKE MELTON
[2021-02-17 15:26] VITALS: BP 125/50
--- NOTE | 2021-02-17 15:30 | NUR ---
[facility] PAPER[facility] COMPLETED SIGNED BY PATIENT. [facility] CONTACTED. REPORTED THEY WOULD PRINTER MAINTAINER PATIENT IN ONE HOUR.
--- NOTE | 2021-02-17 16:47 | NUR ---
[facility] ARRIVED TO TRANSPORT PT TO FACILITY.
--- NOTE | 2021-02-17 18:35 | MORECARE ---
CASE MANAGEMENT DISCHARGE SUMMARY PATIENT: GERI ARZOLA UNIT: [id number] ADM DATE: 02/12/21 AGE: 85 : 36 SEX: F ROOM/BED: D.2103 AUTHOR: KELLEN,DOC PHYSICIAN: REFERRING PHYSICIAN: ORLANDO BA MD DATE OF SERVICE: 02/17/21 Case Management Discharge Planning Summary COMMENTS ENTERED DATE: 02/17/21 18:20 CT COMMENT TYPE: Discharge Planning REVIEWER: Litzy Yang CM met with patient to discuss discharge planning/needs. She lives at [facility] with her spouse. She states she has a medical alert button she wears on her wrist. She states she needs assistance with bathing, dressing, transfers to the bathroom. States she has [facility] for PT. She wears oxygen at 2 liters at . She states the nurses administer all of her medications and checks her glucose. I discussed availability of rehab and additional DME needs. She states she would like to go home with home health "and try that first." I called [facility] and they will accept patient back today. Patient states she will need ambulance transport because she needs to keep her leg straight in the splint and cannot do that in the transportation they provide. She has a walker and a W/C also in her apartment. I attempted to phone her spouse prior to discharge and did not receive an answer. To [facility] assisted living today. [facility] [place] REVIEW SUMMARY ANTICIPATED D/C DATE: EXPECTED LOS : CASE STATUS: DCP Initiated INITIAL REVIEW: 02/11/2021 INITIAL REVIEWER: Ayana Beasley FINAL DISCHARGE DISPOSITION: : FINAL REVIEWER: FINAL REVIEW DATE: IDP Focus Questions & Answers QUESTION: ANSWER : PATIENT: GERI ARZOLA ENCOUNTER: [id number] MEDICAL RECORD#: [id number] ADMISSION DATE: 02/12/2021 DISCHARGE DATE: 02/17/2021 ATTENDING MD: ALEX: AGE: 85 MARITAL STATUS: M DC PLAN ID: [id number] FACILITY: [facility] PRINTED ON: 02/17/21 18:35 CT All edits/amendments must be made on the electronic document DICTATION DATE: 02/17/211834 XRAY TECH: JEREMI 02/17/211834 RPT#: [id number] DC DATE:02/17/21 STATUS: DIS IN [facility] [address] [place] [address] END OF REPORT
--- NOTE | 2021-02-20 14:52 | MORECARE ---
CASE MANAGEMENT DISCHARGE SUMMARY PATIENT: GERI ARZOLA UNIT: [id number] ADM DATE: 02/12/21 AGE: 85 : 37 SEX: F ROOM/BED: D.2103 AUTHOR: KELLEN,DOC PHYSICIAN: REFERRING PHYSICIAN: ORLANDO BA MD DATE OF SERVICE: 02/20/21 Case Management Discharge Planning Summary COMMENTS ENTERED DATE: 02/17/21 18:20 CT COMMENT TYPE: Discharge Planning REVIEWER: Litzy Yang CM met with patient to discuss discharge planning/needs. She lives at [facility] with her spouse. She states she has a medical alert button she wears on her wrist. She states she needs assistance with bathing, dressing, transfers to the bathroom. States she has [facility] for PT. She wears oxygen at 2 liters at . She states the nurses administer all of her medications and checks her glucose. I discussed availability of rehab and additional DME needs. She states she would like to go home with home health "and try that first." I called [facility] and they will accept patient back today. Patient states she will need ambulance transport because she needs to keep her leg straight in the splint and cannot do that in the transportation they provide. She has a walker and a W/C also in her apartment. I attempted to phone her spouse prior to discharge and did not receive an answer. To [facility] assisted living today. [facility] REVIEW SUMMARY ANTICIPATED D/C DATE: EXPECTED LOS : CASE STATUS: DCP Initiated INITIAL REVIEW: 02/11/2021 INITIAL REVIEWER: Ayana Beasley FINAL DISCHARGE DISPOSITION: : FINAL REVIEWER: FINAL REVIEW DATE: [facility] [employer] Questions & Answers QUESTION: ANSWER : PATIENT: GERI ARZOLA ENCOUNTER: [id number] MEDICAL RECORD#: [id number] ADMISSION DATE: 02/12/2021 DISCHARGE DATE: 02/17/2021 ATTENDING MD: ALEX: AGE: 85 MARITAL STATUS: M DC PLAN ID: [id number] FACILITY: [facility] PRINTED ON: 02/20/21 14:52 CT All edits/amendments must be made on the electronic document DICTATION DATE: 02/20/211451 DROSSER: JEREMI 02/20/211451 RPT#: [id number] DC DATE:02/17/21 STATUS: DIS IN [facility] [address] [place] [address] END OF REPORT
== END 2021-02-17 16:48 | disposition home health service (06) | DRG 642 ==
LOC: D.ER 12:17 → D.M2 14:51 → OBSVTIME 14:51 → D.M2 02-12 12:02
PROVIDERS: Emergency Medicine; Family Medicine; ADMIT Family Medicine; ATTEND Family Medicine
DX: E72.4 Disorders of ornithine metabolism (principal); D69.6 Thrombocytopenia, unspecified; E11.40 Type 2 diabetes mellitus with diabetic neuropathy, unspecified; E03.9 Hypothyroidism, unspecified; I10 Essential (primary) hypertension; E11.65 Type 2 diabetes mellitus with hyperglycemia; K21.9 Gastro-esophageal reflux disease without esophagitis; M19.90 Unspecified osteoarthritis, unspecified site; R19.7 Diarrhea, unspecified; Z85.3 Personal history of malignant neoplasm of breast; Z85.828 Personal history of other malignant neoplasm of skin